=== PATIENT | male | born 1980 | race Hispanic/Latino ===

== ENCOUNTER 2019-05-22 22:34 | Inpatient (IN) | payer OTHER ==
[~2019-05-22] VITALS: Ht 167.6 cm; Wt 104.3 kg
[2019-05-22] MEDS ORDERED: ASPIRIN 325 MG TABLET ONE (22:46)
[2019-05-22] MEDS ORDERED: ONDANSETRON HCL 4 MG/2 ML VIAL ONE (22:46)
[2019-05-22] MEDS ORDERED: NITROGLYCERIN 0.4 MG SL TAB SL ONE (22:51)
[2019-05-22] MEDS ORDERED: MORPHINE SULFATE 4 MG/1ML SYG ONE ×2 (22:52→23:35)
[2019-05-22] MEDS ORDERED: HEPARIN 25000 UNITS/250 ML D5W 250 ML IV ONE (22:52)
[2019-05-22] MEDS ORDERED: HEPARIN SODIUM 5000UNIT/ML 1ML VIAL ONE (22:54)
[2019-05-22 22:58] LABS: BASOPHILS % (AUTO) 0.5 % (0.0-5.0); EOSINOPHILS % (AUTO) 0.9 % (0.0-8.0); LYMPHOCYTES % (AUTO) 23.6 % (21.0-51.0); MEAN CORPUSCULAR HEMOGLOBIN 30.1 pg (27.0-33.0); MEAN CORPUSCULAR VOLUME 88.7 fL (79-99); NEUTROPHILS % (AUTO) 68.4 % (40.0-77.0); PLATELET COUNT (AUTO) 296 K/uL (130-400); RED BLOOD CELL COUNT(AUTO) 5.64 MIL/uL (4.50-6.20); WHITE BLOOD COUNT (AUTO) 21.5 K/uL (4.8-10.8)
[2019-05-22] MEDS ORDERED: LORAZEPAM 2 MG/ML 1 ML VIAL ONE (22:59)
[2019-05-22 23:05] LABS: CREATININE 1.1 mg/dL (0.5-1.5); POTASSIUM 4.1 mmol/L (3.5-5.1)
[2019-05-22 23:06] LABS: INR 0.93 (0.85-1.15); PARTIAL THROMBOPLASTIN TIME 23.8 SEC (26.3-35.5); PROTHROMBIN TIME 10.1 SEC (9.6-11.6)
[2019-05-22 23:09] LABS: ALBUMIN 3.3 g/dL (3.5-5.0); BILIRUBIN,TOTAL 0.2 mg/dL (0.2-1.0); TOTAL PROTEIN, SERUM 6.8 g/dL (6.0-8.3)
[2019-05-22] MEDS ORDERED: LACTULOSE 20 GM/30 ML UDCUP PO PRN (23:15)
[2019-05-22] MEDS ORDERED: MORPHINE SULFATE 2 MG/ML 1ML SYG IV PRN (23:15)
[2019-05-22] MEDS ORDERED: ACETAMINOPHEN 325 MG TAB PO PRN ×2 (23:15)
[2019-05-22] MEDS ORDERED: ONDANSETRON HCL 4 MG/2 ML VIAL IV PRN (23:15)
[2019-05-22] MEDS ORDERED: NITROGLYCERIN 2 MG/VIAL VIAL IV ONE (23:20)
[2019-05-22] MEDS ORDERED: BIVALIRUDIN 250 MG/VIAL IV ONE (23:20)
[2019-05-22] MEDS ORDERED: MIDAZOLAM HCL 1 MG/ML 2ML VIAL ONE (23:21)
[2019-05-22] MEDS ORDERED: LIDOCAINE HCL 2% 20ML ONE (23:21)
[2019-05-22] MEDS ORDERED: IOHEXOL-350 50ML VIAL IV ONE (23:23)
[2019-05-22] MEDS ORDERED: FENTANYL CITRATE PF 50 MCG/1 ML 2ML VIAL ONE (23:23)
[2019-05-22] MEDS ORDERED: IOHEXOL 350 MG/ML 100ML INFUS..BTL IV ONE (23:23)
[2019-05-22] MEDS ORDERED: DiphenhydrAMINE HCL 50 MG/ML VIAL ONE (23:40)
[2019-05-23] VITALS (38 sets, daily range): BP systolic 93–131; BP diastolic 39–80
[2019-05-23] LABS: CHOLESTEROL 204 mg/dL (<200); HDL CHOLESTEROL 36 mg/dL (29-71); LDL DIRECT 139 mg/dL (0-99); TRIGLYCERIDES 106 mg/dL (30-200)
[2019-05-23 00:01] LABS: HEMOGLOBIN A1C 5.5 % (4.0-6.0)
[2019-05-23] MEDS ORDERED: DOPAMINE HCL 400 MG/D5%-WATER 0 ML IV ONE (00:24)
[2019-05-23] MEDS ORDERED: ATROPINE SULFATE 0.1 MG/ML 10 ML SYG IVP ONE (00:24)
[2019-05-23] MEDS ORDERED: ONDANSETRON HCL 4 MG/2 ML VIAL ONE (00:25)
[2019-05-23] MEDS ORDERED: TICAGRELOR 90 MG TABLET ONE (00:34)
[2019-05-23] MEDS ORDERED: PHENYLEPHRINE HCL 10 MG/ML 1ML VIAL IV ONE (00:38)
[2019-05-23] MEDS ORDERED: SODIUM CHLORIDE 0.9% 1000ML 1,000 ML IV SCH (00:56)
[2019-05-23] MEDS ORDERED: PHARMACY COMMUNICATION MISC SCH (01:30)
--- NOTE | 2019-05-23 02:22 | NUR ---
0153 Received patient from quality control lab technician. Sedated but awakens easily. No c/o pain,sob. Oriented to room, call light, plan of care, etc. Sinus bradycardia, rate 59 to low 60's, occ PVC. N/C at 2L increased to 3 L due to saturation levels of 90 to 91. Saturating 94 to 95 on 3 liters. 0203 11 seconds of afib w/rvr, 0204 35 seconds afib w/rvr then converted to sinus, rate 60 to 61, occ pvc's. Approx 6 seconds run of afib w/rvr, BBB. Dr. Roe called and informed of rhythm changes. No new orders. Stated do not need to call elevated troponin level in am.
[2019-05-23] MEDS ORDERED: PHENYLEPHRINE HCL 50 MG/NS 250ML IV PRN ×2 (02:45)
[2019-05-23 04:26] LABS: AMPHET/METH SCREEN,URINE NEGATIVE (NEGATIVE); BARBITURATE SCREEN, URINE NEGATIVE (NEGATIVE); BENZODIAZEPINES SCREEN,URINE POSITIVE (NEGATIVE); CANNABINOID SCREEN,URINE NEGATIVE (NEGATIVE); COCAINE SCREEN,URINE POSITIVE (NEGATIVE); OPIATE SCREEN,URINE POSITIVE (NEGATIVE); PHENCYCLIDINE SCREEN,URINE NEGATIVE (NEGATIVE)
[2019-05-23 05:56] LABS: BASOPHILS % (AUTO) 0.3 % (0.0-5.0); EOSINOPHILS % (AUTO) 0.1 % (0.0-8.0); HEMATOCRIT 47.9 % (42-54); LYMPHOCYTES % (AUTO) 17.9 % (21.0-51.0); MEAN CORPUSCULAR HEMOGLOBIN 30.6 pg (27.0-33.0); MEAN CORPUSCULAR HGB CONC 33.6 g/dL (32.0-36.0); MEAN CORPUSCULAR VOLUME 91.1 fL (79-99); MONOCYTES % (AUTO) 6.6 % (3.0-13.0); NEUTROPHILS % (AUTO) 74.4 % (40.0-77.0); PLATELET COUNT (AUTO) 240 K/uL (130-400); RED BLOOD CELL COUNT(AUTO) 5.26 MIL/uL (4.50-6.20); RED CELL DISTRIBUTION WIDTH 14.4 % (11.0-15.5); WHITE BLOOD COUNT (AUTO) 17.2 K/uL (4.8-10.8)
[2019-05-23 06:12] LABS: CREATININE 0.9 mg/dL (0.5-1.5); POTASSIUM 4.4 mmol/L (3.5-5.1)
--- NOTE | 2019-05-23 07:45 | NUR ---
LISSETT DRIP DECREASED TO 6 MCG/MIN , CURRENT B/P 105/70, SR 71
--- NOTE | 2019-05-23 08:20 | NUR ---
DR HUERTA AT BEDSIDE TO ASSESS PATIENT, MD AWARE ABOUT LATEST TROPONIN 263.60. MD MADE AWARE ABOUT SCHEDULED LOPRESSOR 25 MG PO PO BID AND LISINOPRIL 10 MG PO DAILY, PER MD INSTRUCTIONS ARE TO HOLD THESE MEDS FOR NOW, UNTIL PATIENT OFF THE LISSETT DRIP, CURRENTLY AT 6 MCG/MIN
--- NOTE | 2019-05-23 08:30 | NUR ---
LISSETT DRIP DECREASED TO 5 MCG/MIN, CURRENT B/P 100/64, SR 68
[2019-05-23] MEDS: METOPROLOL TARTRATE 25 MG TAB PO SCH ×2 (08:45→20:42)
[2019-05-23] MEDS: FAMOTIDINE/PF 20 MG/2 ML VIAL IV SCH ×2 (08:45→20:41)
[2019-05-23] MEDS: TICAGRELOR 90 MG TABLET PO SCH ×2 (08:45→20:42)
[2019-05-23] MEDS: ASPIRIN 81MG TAB.CHEW PO SCH (08:45)
[2019-05-23] MEDS ORDERED: LISINOPRIL 10 MG TABLET PO SCH (09:00)
--- NOTE | 2019-05-23 09:28 | NUR ---
DCP: HOME SW spoke to pt's mother Steven Costa [phone]. Mother stated that pt did not come home last night and she thought he was at a friends house. Mother was not aware pt was at [facility]. Mother given contact information for nurse Zeeshan in ICU for update on pt condition. Mother reports that pt is living with her since Feb 06. when He and girlfriend of 17yrs had broken up. Pt has no children. Mother states that pt is independent, was working until last week when he could no longer worker because of his health. Pt reportedly was denied SSD in past. Pt has no DME or in home care services because of no insurance. Mother states pt was here in Feb for heart issues and again in April to ER. Mother states pt is very stubborn and non complaint, very heavy smoker and drug user. Mother states she is decision maker if pt can't make them. Discussed code status and mother states pt is FULL CODE. CM to f/u and assist with dcp as needed Addendum: 05/23/19 at 0936 by JOSE FISHER Amended: Links added.
--- NOTE | 2019-05-23 09:30 | NUR ---
LISSETT DRIP DECREASED TO 3 MCG/MIN, CURRENT B/P 126/63, SR 72
--- NOTE | 2019-05-23 10:45 | NUR ---
LISSETT DRIP DECREASED TO 1 MCG/MIN, CURRENT B/P 113/70, SR 63
--- NOTE | 2019-05-23 11:30 | NUR ---
LISSETT DRIP DISCONTINUED AT THIS TIME, CURRENT B/P 118/67, SR 69
--- NOTE | 2019-05-23 14:15 | NUR ---
TRANSFER FROM ICU RECEIVED PT FROM Mariann BAEZA RN, AMBULATING FROM WHEELCHAIR, GAIT STEADY AND STRONG WITH STAND BY ASSIST, RT GROIN SOFT NONTENDER WITH NO OOZING OR HEMATOMA PRESENT. PT RESTING COMFORTABLY, CALL LIGHT WITHIN REACH.
--- NOTE | 2019-05-23 14:15 | NUR ---
VITAL SIGNS REMAIN STABLE. TRANSFERRED TO ROOM 201 VIA WHEELCHAIR, BEDSIDE REPORT GIVEN TO MILENA MEDRANO RN.
[2019-05-23] MEDS ORDERED: ATORVASTATIN CALCIUM 20 MG TABLET PO SCH (21:00)
[2019-05-24 03:42] VITALS: BP 92/58
[2019-05-24 04:10] LABS: BASOPHILS % (AUTO) 0.4 % (0.0-5.0); EOSINOPHILS % (AUTO) 0.5 % (0.0-8.0); HEMATOCRIT 42.9 % (42-54); LYMPHOCYTES % (AUTO) 29.4 % (21.0-51.0); MEAN CORPUSCULAR HEMOGLOBIN 30.2 pg (27.0-33.0); MEAN CORPUSCULAR HGB CONC 33.3 g/dL (32.0-36.0); MEAN CORPUSCULAR VOLUME 90.5 fL (79-99); MONOCYTES % (AUTO) 6.1 % (3.0-13.0); NEUTROPHILS % (AUTO) 63.2 % (40.0-77.0); PLATELET COUNT (AUTO) 230 K/uL (130-400); RED BLOOD CELL COUNT(AUTO) 4.74 MIL/uL (4.50-6.20); RED CELL DISTRIBUTION WIDTH 14.5 % (11.0-15.5); WHITE BLOOD COUNT (AUTO) 16.7 K/uL (4.8-10.8)
[2019-05-24 04:22] LABS: CREATININE 0.9 mg/dL (0.5-1.5); MAGNESIUM 1.7 mg/dL (1.80-2.40); PHOSPHORUS 2.5 mg/dL (2.5-4.9); POTASSIUM 3.8 mmol/L (3.5-5.1)
[2019-05-24 04:25] LABS: HEMOGLOBIN A1C 5.5 % (4.0-6.0)
[2019-05-24 04:35] LABS: B-TYPE NATRIURETIC PEPTIDE 181 pg/mL (0-100)
[2019-05-24 08:34] VITALS: BP 102/57
[2019-05-24] MEDS: FAMOTIDINE/PF 20 MG/2 ML VIAL IV SCH (09:22)
[2019-05-24] MEDS: METOPROLOL TARTRATE 25 MG TAB PO SCH (09:22)
[2019-05-24] MEDS: ASPIRIN 81MG TAB.CHEW PO SCH (09:22)
[2019-05-24] MEDS ORDERED: CLOPIDOGREL BISULFATE 75 MG TAB PO SCH (09:30)
[2019-05-24 12:22] VITALS: BP 94/57
[2019-05-24 16:30] VITALS: BP 102/59
[2019-05-24] MEDS ORDERED: METO25 PO (17:38)
[2019-05-24] MEDS ORDERED: LISI-617 PO (17:38)
[2019-05-24] MEDS ORDERED: ASPI-1005 PO (17:38)
[2019-05-24] MEDS ORDERED: CLOP75TA14 PO (17:38)
[2019-05-24] MEDS ORDERED: ATOR20TA65 PO (17:38)
[2019-05-25] MEDS ORDERED: LISINOPRIL 10 MG TABLET PO SCH (09:00)
[2019-05-25] MEDS ORDERED: CLOPIDOGREL BISULFATE 75 MG TAB PO SCH (09:00)
== END 2019-05-24 17:55 | disposition home or self-care (01) | DRG 246 ==
LOC: EDH 22:34 → EDHIP 22:35 → 2BH 05-23 01:49 → 2AH 05-23 14:17
PROVIDERS: ADMIT Internal Medicine; ATTEND Internal Medicine
PROC: 027034Z Dilation of Coronary Artery, One Artery with Drug-eluting Intraluminal Device, Percutaneous Approach (ICD-10-PCS; principal; 2019-05-22)
PROC: 4A023N7 Measurement of Cardiac Sampling and Pressure, Left Heart, Percutaneous Approach (ICD-10-PCS; 2019-05-22)
PROC: B2111ZZ Fluoroscopy of Multiple Coronary Arteries using Low Osmolar Contrast (ICD-10-PCS; 2019-05-22)
PROC: B2151ZZ Fluoroscopy of Left Heart using Low Osmolar Contrast (ICD-10-PCS; 2019-05-22)
DX: I21.11 ST elevation (STEMI) myocardial infarction involving right coronary artery (principal); I50.21 Acute systolic (congestive) heart failure; F14.90 Cocaine use, unspecified, uncomplicated; F17.290 Nicotine dependence, other tobacco product, uncomplicated; I73.9 Peripheral vascular disease, unspecified; J45.909 Unspecified asthma, uncomplicated; I11.0 Hypertensive heart disease with heart failure; I25.10 Atherosclerotic heart disease of native coronary artery without angina pectoris; Z91.018 Allergy to other foods; Z71.6 Tobacco abuse counseling; I25.2 Old myocardial infarction; Z80.59 Family history of malignant neoplasm of other urinary tract organ; Z82.5 Family history of asthma and other chronic lower respiratory diseases; Z82.49 Family history of ischemic heart disease and other diseases of the circulatory system
CPT/HCPCS: 36415; 71045; 80048; 80053; 80061; 80305; 82550; 83036; 83735; 83880; 84100; 84484; 85025; 85610; 85730; 93005; 93458; 99156; 99157; 99291; C1725; C1760; C1769; C1887; C1894; C9606; G0378; J0461; J0583; J1200; J1265; J1644; J2060; J2250; J2270; J2370; J2405; J3010; J3490; Q9967

== ENCOUNTER 2019-06-11 20:46 | Inpatient (IN) | payer OTHER ==
[~2019-06-11] VITALS: Ht 167.6 cm; Wt 95.2 kg
[~2019-06-11 20:46] MED LIST: ASPI-1005 PO; ATOR20TA65 PO; CLOP75TA14 PO; LISI-617 PO; METO25 PO
[2019-06-11 21:30] LABS: BASOPHILS % (AUTO) 0.8 % (0.0-5.0); EOSINOPHILS % (AUTO) 2.2 % (0.0-8.0); HEMATOCRIT 46.3 % (42-54); LYMPHOCYTES % (AUTO) 31.5 % (21.0-51.0); MEAN CORPUSCULAR HEMOGLOBIN 29.5 pg (27.0-33.0); MEAN CORPUSCULAR HGB CONC 33.3 g/dL (32.0-36.0); MEAN CORPUSCULAR VOLUME 88.7 fL (79-99); MONOCYTES % (AUTO) 10.5 % (3.0-13.0); NEUTROPHILS % (AUTO) 54.6 % (40.0-77.0); PLATELET COUNT (AUTO) 271 K/uL (130-400); RED BLOOD CELL COUNT(AUTO) 5.22 MIL/uL (4.50-6.20); RED CELL DISTRIBUTION WIDTH 13.9 % (11.0-15.5); WHITE BLOOD COUNT (AUTO) 11.7 K/uL (4.8-10.8)
[2019-06-11 21:39] LABS: POTASSIUM 4.2 mmol/L (3.5-5.1)
[2019-06-11 21:41] LABS: INR 0.9 (0.85-1.15); PROTHROMBIN TIME 9.8 SEC (9.6-11.6)
[2019-06-11 21:43] LABS: ALBUMIN 3.2 g/dL (3.5-5.0); BILIRUBIN,TOTAL 0.1 mg/dL (0.2-1.0); TOTAL PROTEIN, SERUM 6.6 g/dL (6.0-8.3)
[2019-06-11 22:01] LABS: AMPHET/METH SCREEN,URINE NEGATIVE (NEGATIVE); BARBITURATE SCREEN, URINE NEGATIVE (NEGATIVE); BENZODIAZEPINES SCREEN,URINE NEGATIVE (NEGATIVE); CANNABINOID SCREEN,URINE NEGATIVE (NEGATIVE); COCAINE SCREEN,URINE POSITIVE (NEGATIVE); OPIATE SCREEN,URINE NEGATIVE (NEGATIVE); PHENCYCLIDINE SCREEN,URINE NEGATIVE (NEGATIVE)
[2019-06-11] MEDS ORDERED: ASPIRIN 325 MG TABLET ONE (22:46)
[2019-06-11] MEDS ORDERED: ONDANSETRON HCL 4 MG/2 ML VIAL ONE (22:46)
[2019-06-11] MEDS ORDERED: HEPARIN SODIUM 5000UNIT/ML 1ML VIAL ONE (22:47)
[2019-06-11] MEDS ORDERED: MORPHINE SULFATE 4 MG/1ML SYG ONE (22:47)
[2019-06-11] MEDS ORDERED: HEPARIN 25000 UNITS/250 ML D5W 250 ML IV ONE (22:49)
[2019-06-11] MEDS ORDERED: VANCOMYCIN 1GM+NS 250ML 250 ML IV ONE (23:25)
[2019-06-11] MEDS ORDERED: ZOSYN 3.375GM+NS 50ML 50 ML IV ONE (23:25)
[2019-06-11] MEDS ORDERED: LACTULOSE 20 GM/30 ML UDCUP PO PRN (23:30)
[2019-06-11] MEDS ORDERED: ACETAMINOPHEN 325 MG TAB PO PRN ×2 (23:30)
[2019-06-11] MEDS ORDERED: HYDRALAZINE HCL 20 MG/ML VIAL IV PRN (23:30)
[2019-06-11] MEDS ORDERED: ONDANSETRON HCL 4 MG/2 ML VIAL IV PRN (23:30)
[2019-06-11] MEDS ORDERED: NITROGLYCERIN 0.4 MG SL TAB SL PRN (23:30)
[2019-06-12 02:30] VITALS: BP 122/72
--- NOTE | 2019-06-12 02:45 | NUR ---
HEPARIN DRIP Received pt from ER with Heparin drip infusing via pump at 1700 unit/hr.Double checked pump setting with Jonathan Medeiros Rn.
[2019-06-12] MEDS: MORPHINE SULFATE 2 MG/ML 1ML SYG IM PRN ×3 (03:04→22:24)
--- NOTE | 2019-06-12 06:09 | NUR ---
PTT boiler control technician here to draw ptt.
[2019-06-12 06:31] LABS: BASOPHILS % (AUTO) 0.5 % (0.0-5.0); EOSINOPHILS % (AUTO) 2.6 % (0.0-8.0); HEMATOCRIT 44.5 % (42-54); LYMPHOCYTES % (AUTO) 52.6 % (21.0-51.0); MEAN CORPUSCULAR HEMOGLOBIN 29.9 pg (27.0-33.0); MEAN CORPUSCULAR HGB CONC 33.3 g/dL (32.0-36.0); MEAN CORPUSCULAR VOLUME 89.9 fL (79-99); MONOCYTES % (AUTO) 6.5 % (3.0-13.0); NEUTROPHILS % (AUTO) 37.2 % (40.0-77.0); PLATELET COUNT (AUTO) 261 K/uL (130-400); RED BLOOD CELL COUNT(AUTO) 4.95 MIL/uL (4.50-6.20); RED CELL DISTRIBUTION WIDTH 14.2 % (11.0-15.5); WHITE BLOOD COUNT (AUTO) 13.3 K/uL (4.8-10.8)
[2019-06-12 06:48] LABS: CREATININE 0.8 mg/dL (0.5-1.5); POTASSIUM 4.2 mmol/L (3.5-5.1)
[2019-06-12 06:54] LABS: INR 0.93 (0.85-1.15); PARTIAL THROMBOPLASTIN TIME 49.5 SEC (26.3-35.5); PROTHROMBIN TIME 10.1 SEC (9.6-11.6)
--- NOTE | 2019-06-12 07:09 | NUR ---
ptt ptt 49.5,no change in heparin drip.next ptt due at 12 noon.
[2019-06-12 08:00] VITALS: BP 111/69
[2019-06-12 09:34] LABS: APPEARANCE,URINE Clear (CLEAR); BILIRUBIN,URINE Negative (NEGATIVE); COLOR,URINE Yellow (YELLOW); GLUCOSE, URINE (UA) Negative (NEGATIVE); KETONES,URINE Negative (NEGATIVE); LEUKOCYTE ESTERASE ,URINE Negative (NEGATIVE); NITRATE,URINE Negative (NEGATIVE); OCCULT BLOOD,URINE Negative (NEGATIVE); PH,URINE 5.5 (5.0-8.0); PROTEIN,URINE Negative (NEGATIVE)
[2019-06-12] MEDS: METOPROLOL TARTRATE 25 MG TAB PO SCH ×2 (09:49→20:23)
[2019-06-12] MEDS: ASPIRIN 81MG TAB.CHEW PO SCH (09:50)
[2019-06-12] MEDS: FAMOTIDINE 20MG TAB 20 MG TAB PO SCH ×2 (09:50→20:23)
[2019-06-12 12:00] VITALS: BP 106/63
[2019-06-12] MEDS ORDERED: HEPARIN 25000 UNITS/250 ML D5W 250 ML IV ONE (12:37)
--- NOTE | 2019-06-12 14:00 | NUR ---
RD NOTIFICATION Pt admitted with Chest pain, pending Warper Fixer evaluation. Pt asleep at time of visit. RN reports Pt wakes up with chest pain, fair appetite (75-100%), no GI distress. Obesity Class II (35.3). Recommend continue Heart Healthy Diet Order RD to follow up with Nutrition Education Please notify as additional nutrition concerns arise. Thank you. Addendum: 06/12/19 at [address] Amended: Links added.
--- NOTE | 2019-06-12 14:52 | NUR ---
DCP CM met with pt discussed dc plans. Pt is independent prior to admission, lives at home w/mother. Denies any equipments/services. Feels safe to go back home, still drives, mother able to assist with transportation and needs. Pt has a selfpay, [facility] assisting, currently seeing Dr Pawel Bui for f/u. Given [employer] packet. DC plan to home once stable. CM to cont to follow up. Addendum: 06/12/19 at 1453 by LENNY MEDRANO LVN CM Amended: Links added.
[2019-06-12] MEDS ORDERED: DiphenhydrAMINE HCL 50 MG/ML VIAL IVP PRN (15:15)
[2019-06-12 16:00] VITALS: BP 120/66
[2019-06-12 18:29] LABS: INR 0.97 (0.85-1.15); PARTIAL THROMBOPLASTIN TIME 56.9 SEC (26.3-35.5); PROTHROMBIN TIME 10.5 SEC (9.6-11.6)
[2019-06-12 19:55] VITALS: BP_SYST 122; BP_SYST 98; BP_DIAS 49; BP_DIAS 71
[2019-06-12] MEDS: ATORVASTATIN CALCIUM 20 MG TABLET PO SCH (20:23)
[2019-06-12 23:32] VITALS: BP 108/50
[2019-06-13 00:18] LABS: INR 0.94 (0.85-1.15); PARTIAL THROMBOPLASTIN TIME 48.1 SEC (26.3-35.5); PROTHROMBIN TIME 10.2 SEC (9.6-11.6)
[2019-06-13] MEDS: HEPARIN 25000 UNITS/250 ML D5W 250 ML IV PRN ×2 (01:01→15:32)
[2019-06-13 03:35] VITALS: BP 115/61
[2019-06-13 04:03] LABS: HEMATOCRIT 48.1 % (42-54); MEAN CORPUSCULAR HEMOGLOBIN 30.2 pg (27.0-33.0); MEAN CORPUSCULAR HGB CONC 33.3 g/dL (32.0-36.0); MEAN CORPUSCULAR VOLUME 90.8 fL (79-99); RED BLOOD CELL COUNT(AUTO) 5.3 MIL/uL (4.50-6.20); RED CELL DISTRIBUTION WIDTH 14.1 % (11.0-15.5); WHITE BLOOD COUNT (AUTO) 13.4 K/uL (4.8-10.8)
[2019-06-13 04:27] LABS: INR 0.94 (0.85-1.15); PARTIAL THROMBOPLASTIN TIME 54.6 SEC (26.3-35.5); PROTHROMBIN TIME 10.2 SEC (9.6-11.6)
[2019-06-13 04:28] LABS: POTASSIUM 4.4 mmol/L (3.5-5.1)
[2019-06-13 07:30] VITALS: BP 100/63
[2019-06-13] MEDS: METOPROLOL TARTRATE 25 MG TAB PO SCH ×2 (08:47→20:36)
[2019-06-13] MEDS: FAMOTIDINE 20MG TAB 20 MG TAB PO SCH ×2 (08:47→20:36)
[2019-06-13] MEDS: ASPIRIN 81MG TAB.CHEW PO SCH (08:47)
[2019-06-13 11:00] VITALS: BP 97/36
--- NOTE | 2019-06-13 11:27 | NUR ---
RD UPDATE Received phone call from Pt's mother to update dietary preferences. Preferences updated. Diet order discrepancy noted, NPO vs Heart Healthy diet order. Currently two orders active. Attempt to notify RN. will call back.
[2019-06-13] MEDS: MORPHINE SULFATE 2 MG/ML 1ML SYG IV PRN (13:12)
--- NOTE | 2019-06-13 14:04 | NUR ---
NUTRITION EDUCATION MARCELO provided Heart Healthy Nutrition education. MARCELO provided reference materials and handouts. Pt with no questions at this time but verbalized understanding to nutrition education. MARCELO encouraged Pt to notify as questions or concerns arise. Addendum: 06/13/19 at [address] Amended: Links added.
--- NOTE | 2019-06-13 15:09 | NUR ---
RD UPDATE PT REPORTS HAS [employer]AS PEPPER ALLERGY, UPON VISIT EARLIER TODAY. NPO FOR PROCEDURE AT THIS TIME.
[2019-06-13] MEDS: SODIUM CHLORIDE 0.9% 1000ML 1,000 ML IV SCH (15:22)
[2019-06-13 16:00] VITALS: BP 94/41
[2019-06-13 20:00] VITALS: BP 104/52
[2019-06-13] MEDS: ATORVASTATIN CALCIUM 20 MG TABLET PO SCH (20:36)
[2019-06-14] VITALS (13 sets, daily range): BP systolic 93–120; BP diastolic 53–79
[2019-06-14] MEDS: MORPHINE SULFATE 2 MG/ML 1ML SYG IV PRN (00:43)
[2019-06-14] MEDS: SODIUM CHLORIDE 0.9% 1000ML 1,000 ML IV SCH ×2 (01:10→10:58)
[2019-06-14 04:19] LABS: CARBON DIOXIDE 28 mmol/L (21-32); CHLORIDE 102 mmol/L (101-111); CREATININE 0.9 mg/dL (0.5-1.5); GLOMERULAR FILTR. RATE CALC 101 mL/min (>60); GLUCOSE,RANDOM 86 mg/dL (70-105); PHOSPHORUS 4.9 mg/dL (2.5-4.9); POTASSIUM 3.9 mmol/L (3.5-5.1); SODIUM SERUM 138 mmol/L (136-145); UREA NITROGEN, BLOOD 11 mg/dL (7-18)
[2019-06-14 04:22] LABS: BASOPHILS % (AUTO) 0.4 % (0.0-5.0); HEMATOCRIT 47.7 % (42-54); LYMPHOCYTES % (AUTO) 42.3 % (21.0-51.0); MEAN CORPUSCULAR HEMOGLOBIN 29.3 pg (27.0-33.0); MEAN CORPUSCULAR HGB CONC 32.9 g/dL (32.0-36.0); MEAN CORPUSCULAR VOLUME 89.2 fL (79-99); MONOCYTES % (AUTO) 7.3 % (3.0-13.0); NEUTROPHILS % (AUTO) 47.5 % (40.0-77.0); PLATELET COUNT (AUTO) 273 K/uL (130-400); RED BLOOD CELL COUNT(AUTO) 5.35 MIL/uL (4.50-6.20); RED CELL DISTRIBUTION WIDTH 13.8 % (11.0-15.5); WHITE BLOOD COUNT (AUTO) 11.2 K/uL (4.8-10.8)
[2019-06-14 04:51] LABS: B-TYPE NATRIURETIC PEPTIDE 117 pg/mL (0-100)
[2019-06-14 05:23] LABS: ERYTHROCYTE SEDIMENTATION RATE 1 MM/HR (0-15)
[2019-06-14] MEDS ORDERED: HEPARIN SODIUM 1000UNIT/ML 10ML VIAL ONE (07:39)
[2019-06-14] MEDS ORDERED: IODIXANOL 320 MG/ML 100 ML VIAL ONE (07:39)
[2019-06-14] MEDS ORDERED: NITROGLYCERIN 2 MG/VIAL VIAL IV ONE (07:39)
[2019-06-14] MEDS ORDERED: MIDAZOLAM HCL 1 MG/ML 2ML VIAL ONE (07:40)
[2019-06-14] MEDS ORDERED: FENTANYL CITRATE PF 50 MCG/1 ML 2ML VIAL ONE (07:40)
[2019-06-14] MEDS ORDERED: LIDOCAINE HCL 2% 20ML ONE (07:40)
[2019-06-14] MEDS: FAMOTIDINE 20MG TAB 20 MG TAB PO SCH (09:00)
[2019-06-14] MEDS: METOPROLOL TARTRATE 25 MG TAB PO SCH (09:00)
[2019-06-14] MEDS: ASPIRIN 81MG TAB.CHEW PO SCH (09:00)
[2019-06-14] MEDS ORDERED: TICAGRELOR 90 MG TABLET ONE (09:41)
[2019-06-14] MEDS ORDERED: ASPIRIN 325MG EC TAB 325 MG TABLET.DR PO ONE (09:41)
[2019-06-14] MEDS ORDERED: SODIUM CHLORIDE 0.9% 1000ML 1,000 ML IV SCH (09:51)
--- NOTE | 2019-06-14 10:20 | NUR ---
RETURNED TO ROOM VIA BED ACCOMPANIED BY Didi PITTS, RN AND Neeru STONE, RN. PT. AAOX3. RESP.'S EVEN AND UNLABORED. DENIES ANY C/O SOB, DENIES ANY CURRENT PAIN. REMINDED PT. OF STRICT BR PER MD ORDERS DUE TO PERIPHERAL ANGIOGRAM AND BILATERAL FEMORAL ACCESS SITES, VERBALIZED UNDERSTANDING. BILATERAL GROINS SOFT, NO ECCHYMOSIS OR HEMATOMA NOTED, DRSG'S D/I. PP'S (+) BILATERALLY; DENIES ANY C/O NUMBNESS OR TINGLING. BED LOW, SIDE RAILS UP. CALL LIGHT WITHIN REACH, VERBALIZED ABILITY TO USE.
--- NOTE | 2019-06-14 14:00 | NUR ---
BR COMPLETED. BILATERAL GROINS, SOFT, NO ECCHYMOSIS OR HEMATOMA NOTED. FEET WITH (+) PP'S. ASSISTED UP IN BED. CALL LIGHT WITHIN REACH, VERBALIZED ABILITY TO USE.
--- NOTE | 2019-06-14 14:30 | NUR ---
PT. AMBULATING IN HALLWAY WITH STEADY GAIT. DENIES ANY C/O.
--- NOTE | 2019-06-14 15:45 | NUR ---
AMBULATING IN HALLWAY WITH STEADY GAIT. W/O C/O.
--- NOTE | 2019-06-14 19:05 | NUR ---
PT. REQUESTED TO LEAVE AMA AND PROCEEDED TO DO SO. EXPLAINED TO PT. RISK FOR BLEEDING, MYOCARDIAL INFARCT, STROKE OR POSSIBLE OCCLUSION TO STENTS THUS CAUSING CIRCULATORY COMPLICATION THAT COULD LEAD TO AMPUTATION, VERBALIZED UNDERSTANDING BUT DOES NOT WISH TO STAY. INFORMED PT. HE WOULD MORE THAN LIKELY BE ABLE TO DISCHARGED IN THE MORNING DR. HUERTA HAD INFORMED HIM BUT SAYS HE DOES NOT WISH TO STAY. HL'S X2 REMOVED INTACT.
--- NOTE | 2019-06-14 19:33 | NUR ---
RECEIVED CALL FROM Meera VIDAL NP. INFORMED PT. LEFT AMA AND DID NOT WISH TO STAY OVERNIGHT, VERBALIZED UNDERSTANDING.
[2019-06-14] MEDS ORDERED: ATORVASTATIN CALCIUM 40 MG TABLET PO SCH (21:00)
[2019-06-14] MEDS ORDERED: TICAGRELOR 90 MG TABLET PO SCH (22:00)
[2019-06-15] MEDS ORDERED: CLOPIDOGREL BISULFATE 75 MG TAB PO SCH (09:00)
== END 2019-06-14 19:10 | disposition left against medical advice (07) | DRG 254 ==
LOC: EDH 20:46 → EDHIP 20:47 → 4BH 06-12 00:38
PROVIDERS: ADMIT Internal Medicine; ATTEND Internal Medicine
PROC: 047D3DZ Dilation of Left Common Iliac Artery with Intraluminal Device, Percutaneous Approach (ICD-10-PCS; principal; 2019-06-14)
PROC: 047C3ZZ Dilation of Right Common Iliac Artery, Percutaneous Approach (ICD-10-PCS; 2019-06-14)
PROC: B41DYZZ Fluoroscopy of Aorta and Bilateral Lower Extremity Arteries using Other Contrast (ICD-10-PCS; 2019-06-14)
DX: I70.202 Unspecified atherosclerosis of native arteries of extremities, left leg (principal); I25.10 Atherosclerotic heart disease of native coronary artery without angina pectoris; I10 Essential (primary) hypertension; F12.90 Cannabis use, unspecified, uncomplicated; F14.10 Cocaine abuse, uncomplicated; I25.2 Old myocardial infarction; F17.290 Nicotine dependence, other tobacco product, uncomplicated; J45.909 Unspecified asthma, uncomplicated; Z79.02 Long term (current) use of antithrombotics/antiplatelets; Z79.899 Other long term (current) drug therapy; Z95.5 Presence of coronary angioplasty implant and graft; Z53.29 Procedure and treatment not carried out because of patient's decision for other reasons; Z82.49 Family history of ischemic heart disease and other diseases of the circulatory system
CPT/HCPCS: 36415; 37220; 37221; 71045; 73630; 75716; 80048; 80053; 80305; 81003; 82550; 83735; 83880; 84100; 84145; 84484; 85025; 85027; 85347; 85610; 85651; 85730; 86140; 87040; 93005; 93926; 99156; 99157; C1760; C1769; C1893; C1894; G0378; J1200; J1644; J2250; J2270; J2405; J2543; J3010; J3370; J3490; J7030; Q9967

== ENCOUNTER 2019-09-01 17:04 | Inpatient (IN) | payer OTHER ==
[2019-09-01 17:42] LABS: BASOPHILS % (AUTO) 0.5 % (0.0-5.0); EOSINOPHILS % (AUTO) 1.9 % (0.0-8.0); HEMATOCRIT 48.7 % (42-54); LYMPHOCYTES % (AUTO) 27.3 % (21.0-51.0); MEAN CORPUSCULAR HEMOGLOBIN 30.8 pg (27.0-33.0); MEAN CORPUSCULAR HGB CONC 34.5 g/dL (32.0-36.0); MEAN CORPUSCULAR VOLUME 89.2 fL (79-99); MONOCYTES % (AUTO) 6.8 % (3.0-13.0); PLATELET COUNT (AUTO) 219 K/uL (130-400); RED BLOOD CELL COUNT(AUTO) 5.46 MIL/uL (4.50-6.20); RED CELL DISTRIBUTION WIDTH 14.3 % (11.0-15.5); WHITE BLOOD COUNT (AUTO) 14.6 K/uL (4.8-10.8)
[2019-09-01 18:05] LABS: INR 0.92 (0.85-1.15); PARTIAL THROMBOPLASTIN TIME 24.9 SEC (26.3-35.5)
[2019-09-01 18:10] LABS: CREATININE 1.2 mg/dL (0.5-1.5); POTASSIUM 3.7 mmol/L (3.5-5.1)
[2019-09-01 18:15] LABS: ALBUMIN 3.2 g/dL (3.5-5.0); BILIRUBIN,TOTAL 0.2 mg/dL (0.2-1.0); TOTAL PROTEIN, SERUM 6.3 g/dL (6.0-8.3)
[2019-09-01] MEDS ORDERED: ASPIRIN 325 MG TABLET ONE (18:33)
[2019-09-01] MEDS ORDERED: NITROGLYCERIN 1GM/1 INCH PACKET TD ONE (18:33)
[2019-09-01 20:12] LABS: APPEARANCE,URINE Clear (CLEAR); BILIRUBIN,URINE Negative (NEGATIVE); COLOR,URINE Yellow (YELLOW); GLUCOSE, URINE (UA) Negative (NEGATIVE); KETONES,URINE Trace mg/dL (NEGATIVE); LEUKOCYTE ESTERASE ,URINE Negative (NEGATIVE); NITRATE,URINE Negative (NEGATIVE); OCCULT BLOOD,URINE Negative (NEGATIVE); PH,URINE 5.5 (5.0-8.0); PROTEIN,URINE Trace mg/dL (NEGATIVE)
[2019-09-01 20:20] LABS: AMPHET/METH SCREEN,URINE POSITIVE (NEGATIVE); BARBITURATE SCREEN, URINE NEGATIVE (NEGATIVE); BENZODIAZEPINES SCREEN,URINE NEGATIVE (NEGATIVE); CANNABINOID SCREEN,URINE NEGATIVE (NEGATIVE); COCAINE SCREEN,URINE POSITIVE (NEGATIVE); OPIATE SCREEN,URINE NEGATIVE (NEGATIVE); PHENCYCLIDINE SCREEN,URINE NEGATIVE (NEGATIVE)
[2019-09-01 20:22] LABS: BACTERIA,URINE Rare /HPF (None Seen); MUCUS,URINE Few LPF (None Seen); RBC,URINE 0-1 /HPF (0-1); SQUAMOUS EPITHELIAL CELL,UR Rare /HPF (0-2); WBC,URINE 0-1 /HPF (0-1)
[2019-09-01] MEDS ORDERED: KETOROLAC TROMETHAMINE 30MG/ML ONE (20:40)
[2019-09-01] MEDS ORDERED: ASPIRIN 81MG TAB.CHEW PO SCH (21:00)
[2019-09-01] MEDS ORDERED: METOPROLOL TARTRATE 25 MG TAB PO SCH (21:00)
[2019-09-01] MEDS ORDERED: ATORVASTATIN CALCIUM 20 MG TABLET PO SCH (21:00)
[2019-09-01] MEDS ORDERED: ATORVASTATIN CALCIUM 40 MG TABLET ONE (21:13)
[2019-09-01] MEDS ORDERED: ASPIRIN 81MG TAB.CHEW ONE (21:13)
[2019-09-01] MEDS ORDERED: ENOXAPARIN SODIUM 40 MG/0.4 ML SYRINGE SQ ONE (21:13)
[2019-09-01] MEDS ORDERED: METOPROLOL TARTRATE 25 MG TAB ONE (21:13)
[2019-09-02] MEDS ORDERED: ENOXAPARIN SODIUM 40 MG/0.4 ML SYRINGE SQ SCH (09:00)
[2019-09-02] MEDS ORDERED: ASPIRIN 81MG TAB.CHEW PO SCH (09:00)
== END 2019-09-01 23:53 | disposition left against medical advice (07) | DRG 282 ==
LOC: EDH 17:04 → EDHIP 17:05
PROVIDERS: ADMIT Internal Medicine Infectious Disease; ATTEND Internal Medicine Infectious Disease
DX: I21.4 Non-ST elevation (NSTEMI) myocardial infarction (principal); M79.662 Pain in left lower leg; I73.9 Peripheral vascular disease, unspecified; Z91.018 Allergy to other foods
CPT/HCPCS: 36415; 71045; 80053; 80305; 81001; 82550; 84484; 85025; 85610; 85730; 93005; 93925; G0378; J1650; J1885

== ENCOUNTER 2019-09-03 16:23 | Inpatient (IN) | payer OTHER ==
[~2019-09-03] VITALS: Ht 165.1 cm; Wt 95.7 kg
[2019-09-03 17:00] LABS: BASOPHILS % (AUTO) 0.6 % (0.0-5.0); EOSINOPHILS % (AUTO) 2.2 % (0.0-8.0); HEMATOCRIT 47.4 % (42-54); LYMPHOCYTES % (AUTO) 27.8 % (21.0-51.0); MEAN CORPUSCULAR HEMOGLOBIN 30.5 pg (27.0-33.0); MEAN CORPUSCULAR HGB CONC 33.5 g/dL (32.0-36.0); MONOCYTES % (AUTO) 7.5 % (3.0-13.0); NEUTROPHILS % (AUTO) 61.3 % (40.0-77.0); PLATELET COUNT (AUTO) 227 K/uL (130-400); RED BLOOD CELL COUNT(AUTO) 5.21 MIL/uL (4.50-6.20); RED CELL DISTRIBUTION WIDTH 14.3 % (11.0-15.5); WHITE BLOOD COUNT (AUTO) 12.5 K/uL (4.8-10.8)
[2019-09-03 17:12] LABS: CREATININE 1.1 mg/dL (0.5-1.5); POTASSIUM 4.1 mmol/L (3.5-5.1)
[2019-09-03 17:14] LABS: INR 0.9 (0.85-1.15); PARTIAL THROMBOPLASTIN TIME 25.3 SEC (26.3-35.5); PROTHROMBIN TIME 9.8 SEC (9.6-11.6)
[2019-09-03 17:17] LABS: ALBUMIN 3.1 g/dL (3.5-5.0); BILIRUBIN,TOTAL 0.3 mg/dL (0.2-1.0); TOTAL PROTEIN, SERUM 6.5 g/dL (6.0-8.3)
[2019-09-03] MEDS ORDERED: ASPIRIN 325 MG TABLET ONE (17:47)
[2019-09-03] MEDS ORDERED: HEPARIN 25000 UNITS/250 ML D5W 250 ML IV ONE (17:51)
[2019-09-03] MEDS ORDERED: HEPARIN SODIUM 5000UNIT/ML 1ML VIAL ONE ×2 (18:09→18:12)
[2019-09-03] MEDS ORDERED: NITROGLYCERIN 1GM/1 INCH PACKET TD ONE (20:08)
[2019-09-03] MEDS: NITROGLYCERIN 1GM/1 INCH PACKET TD SCH (21:00)
[2019-09-03] MEDS: FAMOTIDINE/PF 20 MG/2 ML VIAL IV SCH (21:00)
[2019-09-03] MEDS ORDERED: ACETAMINOPHEN 325 MG TAB PO PRN ×2 (21:00)
[2019-09-03] MEDS ORDERED: ONDANSETRON HCL 4 MG/2 ML VIAL IV PRN (21:00)
[2019-09-03 23:30] VITALS: BP 97/55
[2019-09-04] MEDS: CEFTRIAXONE SODIUM 1 GM IVP SCH ×3 (00:46→20:19)
[2019-09-04] MEDS: KETOROLAC TROMETHAMINE 15MG/ML IV PRN ×2 (00:46→20:19)
[2019-09-04 04:00] VITALS: BP_SYST 103; BP_SYST 98; BP_DIAS 57; BP_DIAS 60
[2019-09-04] MEDS: NITROGLYCERIN 1GM/1 INCH PACKET TD SCH ×3 (04:24→20:20)
[2019-09-04 08:17] LABS: BASOPHILS % (AUTO) 0.5 % (0.0-5.0); EOSINOPHILS % (AUTO) 2.5 % (0.0-8.0); HEMATOCRIT 46.4 % (42-54); LYMPHOCYTES % (AUTO) 39.5 % (21.0-51.0); MEAN CORPUSCULAR HEMOGLOBIN 30.4 pg (27.0-33.0); MEAN CORPUSCULAR HGB CONC 33.2 g/dL (32.0-36.0); MEAN CORPUSCULAR VOLUME 91.5 fL (79-99); MONOCYTES % (AUTO) 6.7 % (3.0-13.0); NEUTROPHILS % (AUTO) 49.9 % (40.0-77.0); PLATELET COUNT (AUTO) 228 K/uL (130-400); RED BLOOD CELL COUNT(AUTO) 5.07 MIL/uL (4.50-6.20); RED CELL DISTRIBUTION WIDTH 14.4 % (11.0-15.5)
[2019-09-04 08:32] LABS: HEMOGLOBIN A1C 5.6 % (4.0-6.0)
[2019-09-04 08:33] LABS: BILIRUBIN,TOTAL 0.5 mg/dL (0.2-1.0); CREATININE 0.9 mg/dL (0.5-1.5); POTASSIUM 4.3 mmol/L (3.5-5.1); TOTAL PROTEIN, SERUM 6.4 g/dL (6.0-8.3)
--- NOTE | 2019-09-04 09:18 | NUR ---
DR ANGELA NOTIFIED OF CONSULT AND ROOM NUMBER-STATES HE WILL COME TO SEE PT
--- NOTE | 2019-09-04 10:59 | NUR ---
DCP CM unable to do face assessment w/pt at the [facility], called mother on facesheet, spoke to Fortunatonita Igor discussed dc plans. Per mother pt is mostly independent, but lately semi-independent w/ambulation prior to admission, lives at home w/parents. Denies any equipments/services. Feels safe to go back home, mother able to assist with transportation and needs as necessary. Pt is currently selfpay, [facility] assisting, per mother sees Dr Pawel Bui for MD f/u. Mother verbalized pt had [employer] until recently, it was suspended due to unable to make payment. Mother verbalized she will send payment this Monday hoping to reactivate insurance. DC plan to home once stable. CM to cont to follow up. Informed registration regarding pt suspended insurance w/[facility]. Addendum: 09/04/19 at 1104 by LENNY MEDRANO LVN Amended: Links added.
--- NOTE | 2019-09-04 11:01 | NUR ---
CHART CHECK COMPLETED. Pt IS A 39 Y.O. MALE ADMITTED SECONDARY TO NSTEMI, LEFT 5TH DIGIT ISCHEMIA AND COCAINE ABUSE. Pt HAS A PAST MEDICAL HISTORY SIGNIFICANT FOR ASTHMA, COCAINE ABUSE, IN, HYPERTENSION, HYPERCHOLESTEROLEMIA, NASAL POLYP REMOVED, STENTED ARTERY, TONSILLECTOMY. Pt CURRENTLY ON CLEAR LIQUID DIET. PLEASE REQUEST FORMAL SKILLED SPEECH/SWALLOW EVALUATION IF Pt PRESENTS WITH +S/S OF ASPIRATION OF COUGH RESPONSE, THROAT CLEAR, WET VOCAL QUALITY DURING P.O. Addendum: 09/04/19 at 1107 by ASHLEY CROWLEY, SPT ST Amended: Links added.
[2019-09-04] MEDS ORDERED: HEPARIN SODIUM 5000UNIT/ML 1ML VIAL SQ PRN (11:15)
[2019-09-04] MEDS ORDERED: HEPARIN 25000 UNITS/250 ML D5W 250 ML IV SCH (11:15)
[2019-09-04 11:38] VITALS: BP 124/77
[2019-09-04] MEDS: FAMOTIDINE/PF 20 MG/2 ML VIAL IV SCH ×2 (11:51→20:19)
[2019-09-04] MEDS: ASPIRIN 81MG TAB.CHEW PO SCH (11:51)
[2019-09-04 16:00] VITALS: BP 105/65
[2019-09-04] MEDS ORDERED: HEPARIN SODIUM 5000UNIT/ML 1ML VIAL IV SCH (16:15)
[2019-09-04 19:48] VITALS: BP 105/59
[2019-09-04 23:53] VITALS: BP 100/60
[2019-09-05] VITALS (10 sets, daily range): BP systolic 97–126; BP diastolic 57–83
[2019-09-05] MEDS: NITROGLYCERIN 1GM/1 INCH PACKET TD SCH ×2 (04:49→12:32)
--- NOTE | 2019-09-05 07:50 | NUR ---
Assessment Referral for cocaine abuse. Pt. is awake, alert and oriented, reports that he is single, currently unemployed and resides at home with his Mother. Pt. is independent with ADL's and his mother is financially supportive. All utilities reportedly connected in the home, pt. will return home at discharge with mother providing transportation. Pt. admits to having used Marijuana prior to admission, stating that he just wanted to get relief from pain on his leg/foot. According to pt., he obtained the marijuana from a friend and it was "laced" with the cocaine. Pt. admits that he should seek counseling and a program for substance use disorder. LARRY spoke with pt. about [facility] and the program/services offered, pt. voiced an understanding, saying he would consider it. Pt. denied depressive symptoms, suicidal thoughts/ideations, thoughts of harming self or others. LARRY provided pt. with brochure on [facility] Substance Use Disorder Program, [facility] Counseling Program, Community resources and 211. Pt. voiced no other needs or concerns. Addendum: 09/05/19 at 1110 by ROHIT PITTS Amended: Links added.
--- NOTE | 2019-09-05 08:06 | NUR ---
DR HIDALGO-PODIATRY NOTIFIED OF CONSULT
[2019-09-05] MEDS ORDERED: CLOPIDOGREL BISULFATE 75 MG TAB PO SCH (09:00)
[2019-09-05] MEDS ORDERED: HEPARIN SODIUM 5000UNIT/ML 1ML VIAL ONE (09:03)
[2019-09-05] MEDS: FAMOTIDINE/PF 20 MG/2 ML VIAL IV SCH (09:18)
[2019-09-05] MEDS: ASPIRIN 81MG TAB.CHEW PO SCH (09:19)
--- NOTE | 2019-09-05 10:00 | NUR ---
Dr. Pulliam notified of consult Dr. Pulliam notified of consult via office.
[2019-09-05] MEDS: CEFTRIAXONE SODIUM 1 GM IVP SCH (12:32)
--- NOTE | 2019-09-05 15:49 | NUR ---
AMA 1530 pt stated he wanted to "check himself out". Pt stated he was "sick of waiting" and "[wants] to go home and take [his] plavix". Healthcare Specialist spoke with pt and THERESA Marshall spoke with pt regarding the potential benefits of staying and risks of leaving before completing treatment. Pt not redirectable at this time. IV dc'd catheter intact.
== END 2019-09-05 15:49 | disposition left against medical advice (07) | DRG 282 ==
LOC: EDH 16:23 → EDHIP 16:24 → DAHIP 23:25
PROVIDERS: ADMIT Internal Medicine; ATTEND Internal Medicine
DX: I21.4 Non-ST elevation (NSTEMI) myocardial infarction (principal); E78.5 Hyperlipidemia, unspecified; F17.210 Nicotine dependence, cigarettes, uncomplicated; I10 Essential (primary) hypertension; I73.9 Peripheral vascular disease, unspecified; J45.909 Unspecified asthma, uncomplicated; Z91.19 Patient's noncompliance with other medical treatment and regimen; F14.10 Cocaine abuse, uncomplicated
CPT/HCPCS: 36415; 71045; 80053; 80061; 82550; 83036; 83605; 84484; 85025; 85610; 85730; 93005; 93925; G0378; J0696; J1644; J1885; J3490

== ENCOUNTER 2019-09-15 14:07 | Inpatient (IN) | payer OTHER ==
[~2019-09-15] VITALS: Ht 167.6 cm; Wt 95.1 kg
[2019-09-15 15:01] LABS: BASOPHILS % (AUTO) 0.5 % (0.0-5.0); EOSINOPHILS % (AUTO) 2.4 % (0.0-8.0); HEMATOCRIT 41.4 % (42-54); LYMPHOCYTES % (AUTO) 29.1 % (21.0-51.0); MEAN CORPUSCULAR HEMOGLOBIN 30.3 pg (27.0-33.0); MEAN CORPUSCULAR HGB CONC 34.5 g/dL (32.0-36.0); MEAN CORPUSCULAR VOLUME 87.7 fL (79-99); MONOCYTES % (AUTO) 7.5 % (3.0-13.0); NEUTROPHILS % (AUTO) 60.2 % (40.0-77.0); PLATELET COUNT (AUTO) 298 K/uL (130-400); RED BLOOD CELL COUNT(AUTO) 4.72 MIL/uL (4.50-6.20); RED CELL DISTRIBUTION WIDTH 13.6 % (11.0-15.5); WHITE BLOOD COUNT (AUTO) 10.2 K/uL (4.8-10.8)
[2019-09-15 15:23] LABS: INR 0.99 (0.85-1.15); PARTIAL THROMBOPLASTIN TIME 30.7 SEC (26.3-35.5); PROTHROMBIN TIME 10.7 SEC (9.6-11.6)
[2019-09-15] MEDS ORDERED: ASPIRIN 325 MG TABLET ONE (15:24)
[2019-09-15 15:26] LABS: ALBUMIN 2.9 g/dL (3.5-5.0); BILIRUBIN,TOTAL 0.6 mg/dL (0.2-1.0); POTASSIUM 3.5 mmol/L (3.5-5.1); TOTAL PROTEIN, SERUM 6.9 g/dL (6.0-8.3)
[2019-09-15] MEDS ORDERED: HEPARIN 25000 UNITS/250 ML D5W 250 ML IV ONE (17:12)
[2019-09-15] MEDS ORDERED: HEPARIN SODIUM 5000UNIT/ML 1ML VIAL ONE (17:12)
[2019-09-15 18:40] LABS: AMPHET/METH SCREEN,URINE NEGATIVE (NEGATIVE); BARBITURATE SCREEN, URINE NEGATIVE (NEGATIVE); BENZODIAZEPINES SCREEN,URINE NEGATIVE (NEGATIVE); CANNABINOID SCREEN,URINE NEGATIVE (NEGATIVE); COCAINE SCREEN,URINE POSITIVE (NEGATIVE); OPIATE SCREEN,URINE NEGATIVE (NEGATIVE); PHENCYCLIDINE SCREEN,URINE NEGATIVE (NEGATIVE)
[2019-09-15] MEDS ORDERED: ONDANSETRON HCL 4 MG/2 ML VIAL IV PRN (18:45)
[2019-09-15] MEDS ORDERED: ACETAMINOPHEN 325 MG TAB PO PRN (18:45)
[2019-09-15] MEDS ORDERED: HEPARIN 25000 UNITS/250 ML D5W 250 ML IV SCH (18:45)
[2019-09-15] MEDS ORDERED: ATORVASTATIN CALCIUM 20 MG TABLET ONE (20:35)
[2019-09-15] MEDS ORDERED: METOPROLOL TARTRATE 25 MG TAB ONE (20:36)
[2019-09-15] MEDS: METOPROLOL TARTRATE 25 MG TAB PO SCH (21:00)
[2019-09-16 00:22] LABS: INR 0.99 (0.85-1.15); PARTIAL THROMBOPLASTIN TIME 36.4 SEC (26.3-35.5); PROTHROMBIN TIME 10.7 SEC (9.6-11.6)
[2019-09-16] MEDS ORDERED: KETOROLAC TROMETHAMINE 30MG/ML ONE (01:31)
[2019-09-16 04:12] VITALS: BP 132/88
[2019-09-16 05:44] LABS: HEMATOCRIT 41.8 % (42-54); MEAN CORPUSCULAR HEMOGLOBIN 30.7 pg (27.0-33.0); MEAN CORPUSCULAR HGB CONC 34.7 g/dL (32.0-36.0); MEAN CORPUSCULAR VOLUME 88.4 fL (79-99); RED BLOOD CELL COUNT(AUTO) 4.73 MIL/uL (4.50-6.20); RED CELL DISTRIBUTION WIDTH 13.5 % (11.0-15.5); WHITE BLOOD COUNT (AUTO) 11.2 K/uL (4.8-10.8)
[2019-09-16 05:53] LABS: CREATININE 0.9 mg/dL (0.5-1.5); POTASSIUM 3.6 mmol/L (3.5-5.1)
[2019-09-16 06:18] LABS: INR 0.99 (0.85-1.15); PARTIAL THROMBOPLASTIN TIME 30.4 SEC (26.3-35.5); PROTHROMBIN TIME 10.7 SEC (9.6-11.6)
[2019-09-16] MEDS: HEPARIN 25000 UNITS/250 ML D5W 250 ML IV PRN (06:46)
[2019-09-16 08:00] VITALS: BP 141/84
--- NOTE | 2019-09-16 08:50 | NUR ---
SPOKE WITH DR HUERTA REGARDING A NEW ORDER FOR ABD AORTIC ANGIO WITH RUNOFF FOR THIS PT. REMAINS NPO WITH NO CURRENT C/O PAIN OR RESP DIFFICLULTY, HEPARIN GTT REMAINS AT 23ML/HR
[2019-09-16] MEDS ORDERED: IOHEXOL-350 50ML VIAL IV ONE (09:48)
[2019-09-16] MEDS ORDERED: IOHEXOL-350 75 ML VIAL IV ONE (09:48)
[2019-09-16] MEDS: LISINOPRIL 5 MG TABLET PO SCH (10:35)
[2019-09-16] MEDS: CLOPIDOGREL BISULFATE 75 MG TAB PO SCH (10:35)
[2019-09-16] MEDS: ASPIRIN 81MG TAB.CHEW PO SCH (10:36)
[2019-09-16 11:00] VITALS: BP 120/80
--- NOTE | 2019-09-16 12:02 | NUR ---
PT TAKEN BY W/C IN GOOD CONDITION ACCOMPANIED BY STAFF TRANSPORT WITH IV HEPARIN GTT AT 23ML/HR PATENT AND IN PLACE
--- NOTE | 2019-09-16 12:58 | NUR ---
DCP CM unable to meet with pt, called mother on facesheet, spoke to Steven Costa , discussed dc plans. Pt is independent prior to admission, lives at home with mother. Denies any equipments/services. Feels safe to go back home, still drives, mother able to assist with transportation and needs as necessary. DC plan to home once stable. CM to cont to follow up. Addendum: 09/16/19 at 1300 by LENNY MEDRANO LVN CM Amended: Links added.
--- NOTE | 2019-09-16 13:08 | NUR ---
PT RETURNED TO THE ROOM IN GOOD CONDITION WITH IV HEPARIN IN TOW, NOTE RATE CHANGE PER PROTOCOL (27ML/HR), PT NOW EATING HEART HEALTHY DIET.
[2019-09-16 16:00] VITALS: BP 117/80
--- NOTE | 2019-09-16 17:58 | NUR ---
SPOKE WITH DR HORTON REGARDING PTS BM. THE PT REPORTS FORMED STOOL WITH BLOOD. HE FLUSHED BEFORE WE COULD SEE. HOWEVER, IT IS REPORTED TO THE PHYSICIAN OF APPROX A DOLLAR BILL SIZED RED BLOOD IN THE TRASH. NEW ORDER TO HOLD THE HEPARIN UNTIL AFTER THE PTT IS DRAWN.
[2019-09-16] MEDS: KETOROLAC TROMETHAMINE 30MG/ML IV PRN (18:37)
--- NOTE | 2019-09-16 18:53 | NUR ---
REPORT TO DR HORTON OF PTT 29.3. NEW ORDERS TO RESTART THE HEPARIN PER PROTOCOL AT 31ML/HR. IF THE PT STARTS HAVING BLOODY STOOLS AGAIN, STOP THE HEPARIN
[2019-09-16 20:26] VITALS: BP 127/84
[2019-09-16] MEDS: ATORVASTATIN CALCIUM 20 MG TABLET PO SCH ×2 (20:37→20:39)
[2019-09-16] MEDS: METOPROLOL TARTRATE 25 MG TAB PO SCH ×2 (20:37→20:40)
[2019-09-16 23:44] VITALS: BP 110/68
[2019-09-17] MEDS: KETOROLAC TROMETHAMINE 30MG/ML IV PRN ×2 (02:10→15:39)
[2019-09-17 04:12] VITALS: BP 120/74
[2019-09-17 06:04] LABS: BASOPHILS % (AUTO) 0.4 % (0.0-5.0); EOSINOPHILS % (AUTO) 3.4 % (0.0-8.0); HEMATOCRIT 42.7 % (42-54); LYMPHOCYTES % (AUTO) 39.2 % (21.0-51.0); MEAN CORPUSCULAR HGB CONC 34.2 g/dL (32.0-36.0); MEAN CORPUSCULAR VOLUME 87.9 fL (79-99); MONOCYTES % (AUTO) 6.5 % (3.0-13.0); NEUTROPHILS % (AUTO) 50.1 % (40.0-77.0); PLATELET COUNT (AUTO) 329 K/uL (130-400); RED BLOOD CELL COUNT(AUTO) 4.86 MIL/uL (4.50-6.20); RED CELL DISTRIBUTION WIDTH 13.4 % (11.0-15.5); WHITE BLOOD COUNT (AUTO) 9.8 K/uL (4.8-10.8)
[2019-09-17 06:39] LABS: ALBUMIN 2.7 g/dL (3.5-5.0); BILIRUBIN,TOTAL 0.7 mg/dL (0.2-1.0); POTASSIUM 3.6 mmol/L (3.5-5.1); TOTAL PROTEIN, SERUM 6.5 g/dL (6.0-8.3)
[2019-09-17 08:50] VITALS: BP 136/103
[2019-09-17] MEDS: CLOPIDOGREL BISULFATE 75 MG TAB PO SCH (09:33)
[2019-09-17] MEDS: METOPROLOL TARTRATE 25 MG TAB PO SCH ×2 (09:33→20:50)
[2019-09-17] MEDS: ASPIRIN 81MG TAB.CHEW PO SCH (09:33)
[2019-09-17] MEDS: LISINOPRIL 5 MG TABLET PO SCH (09:35)
[2019-09-17 11:58] VITALS: BP 123/84
[2019-09-17 14:13] LABS: HEMATOCRIT 44.4 % (42-54)
[2019-09-17 16:46] VITALS: BP 115/78
[2019-09-17 20:09] LABS: HEMATOCRIT 45.3 % (42-54)
[2019-09-17 20:14] VITALS: BP 126/81
[2019-09-17] MEDS: ATORVASTATIN CALCIUM 20 MG TABLET PO SCH (20:50)
--- NOTE | 2019-09-17 20:50 | NUR ---
MEDS SHIFT ASSESSMENT DONE, PLEASE REFER TO CHART. DUE MEDS ADMINISTERED, TOLERATED WELL. KEPT COMFORTABLE IN BED. CALL LIGHT WITHIN REACH. Addendum: 09/18/19 at 0036 by CASIMIRO JACOBO RN RN Amended: Links added.
[2019-09-17 23:51] VITALS: BP 132/78
[2019-09-18] MEDS: KETOROLAC TROMETHAMINE 30MG/ML IV PRN ×2 (00:39→12:22)
--- NOTE | 2019-09-18 00:39 | NUR ---
PAIN PT COMPLAINTS OF PAINS ON HIS LEFT LEG. MEDICATED WITH TORADOL IV. KEPT COMFORTABLE IN BED. WILL RE-ASSESS PT.
--- NOTE | 2019-09-18 02:06 | NUR ---
HEPARIN PT'S PTT RESULTS=28.7. BOLUS OF 7000 UNITS ADMINISTERED THEN ADJUSTED DRIP RATE TO 51CC/HR PER PROTOCOL. WILL MONITOR PT.
[2019-09-18 02:08] LABS: BASOPHILS % (AUTO) 0.7 % (0.0-5.0); EOSINOPHILS % (AUTO) 3.3 % (0.0-8.0); HEMATOCRIT 42.9 % (42-54); LYMPHOCYTES % (AUTO) 43.8 % (21.0-51.0); MEAN CORPUSCULAR HEMOGLOBIN 30.2 pg (27.0-33.0); MEAN CORPUSCULAR HGB CONC 34.3 g/dL (32.0-36.0); MEAN CORPUSCULAR VOLUME 88.3 fL (79-99); NEUTROPHILS % (AUTO) 46.9 % (40.0-77.0); PLATELET COUNT (AUTO) 323 K/uL (130-400); RED BLOOD CELL COUNT(AUTO) 4.86 MIL/uL (4.50-6.20); RED CELL DISTRIBUTION WIDTH 13.3 % (11.0-15.5); WHITE BLOOD COUNT (AUTO) 10.2 K/uL (4.8-10.8)
[2019-09-18 02:23] LABS: ALBUMIN 2.8 g/dL (3.5-5.0); BILIRUBIN,TOTAL 0.4 mg/dL (0.2-1.0); POTASSIUM 3.9 mmol/L (3.5-5.1); TOTAL PROTEIN, SERUM 6.5 g/dL (6.0-8.3)
[2019-09-18 03:48] VITALS: BP 129/81
[2019-09-18] MEDS ORDERED: HEPARIN 25000 UNITS/250 ML D5W 250 ML IV ONE (04:37)
--- NOTE | 2019-09-18 04:45 | NUR ---
DRIP PT RESTING WELL. NO DISTRESS NOTED. NO CONCERNS VERBALIZED. NEW HEPARIN BAG HUNG. KEPT RESTED. FOR MORE CARE.
[2019-09-18 07:16] VITALS: BP 129/88
[2019-09-18] MEDS: METOPROLOL TARTRATE 25 MG TAB PO SCH ×2 (10:12→19:49)
[2019-09-18] MEDS: CLOPIDOGREL BISULFATE 75 MG TAB PO SCH (10:12)
[2019-09-18] MEDS: ASPIRIN 81MG TAB.CHEW PO SCH (10:12)
[2019-09-18] MEDS: LISINOPRIL 5 MG TABLET PO SCH (10:12)
[2019-09-18 10:25] VITALS: BP 135/78
[2019-09-18] MEDS: HEPARIN 25000 UNITS/250 ML D5W 250 ML IV PRN ×2 (11:02→18:00)
[2019-09-18] MEDS ORDERED: HEPARIN SODIUM 5000UNIT/ML 1ML VIAL ONE ×2 (11:06→17:54)
[2019-09-18 15:35] VITALS: BP 110/75
--- NOTE | 2019-09-18 18:34 | NUR ---
CARDIO INFORMED DR HUERTA OF FINDINGS OF CTA, STATES PT WILL NEED AORTIC BILATERAL FEMORAL BYPASS, RECEIVED ORDERS TO CONSULT CARDIOVASCULAR SURGEON. PLACED CALL TO DR ALMENDAREZ, INFORMED OF FINDINGS, DR ALMENDAREZ STATES HE WILL SEE PATIENT ONCE HE IS ON THE MEDICAL FLOOR. DR HUERTA ALSO REQUESTING TO BE NOTIFIED WHEN PATIENT IS MOVED TO THE MEDICAL FLOOR.
[2019-09-18 19:00] VITALS: BP 130/78
[2019-09-18] MEDS: ATORVASTATIN CALCIUM 20 MG TABLET PO SCH (19:49)
--- NOTE | 2019-09-18 19:50 | NUR ---
MEDS SHIFT ASSESSMENT DONE, PLEASE REFER TO CHART. DUE MEDS ADMINISTERED, TOLERATED WELL. CONTINUED ON HEPARIN DRIP. PT IS ALREADY AWARE OF NEGATIVE COVID TEST, AWAITING REGULAR MED-SURG BED. KEPT RESTED IN BED. WILL MONITOR PT. Addendum: 09/18/19 at 2053 by CASIMIRO JACOBO RN RN Amended: Links added.
[2019-09-18 21:07] LABS: INR 1.04 (0.85-1.15); PROTHROMBIN TIME 11.2 SEC (9.6-11.6)
[2019-09-18 21:10] LABS: PARTIAL THROMBOPLASTIN TIME 97.7 SEC (26.3-35.5)
--- NOTE | 2019-09-18 23:29 | NUR ---
REPORT REPORT GIVEN TO SHAAN SHEIKH. PENDING TRANSFER OF PT TO MED-SURG AREA.
[2019-09-19] VITALS: BP 119/71
--- NOTE | 2019-09-19 00:35 | NUR ---
PTT PTT RESULTS=29.4. DOSE PER PROTOCOL ADJUSTED AT 19CC/HR. PT TRANSFERRED TO REGULAR MED SURG AREA.
[2019-09-19 04:00] VITALS: BP 139/90
--- NOTE | 2019-09-19 04:43 | NUR ---
bath PT REQUESTING TO GET IN THE SHOWER. TOLD THE PT HE CAN SHOWER BUT HE WOULD HAVE TO REMAIN CONNECTED TO THE IV WHILE INFUSING THE HEPARIN. VERBALIZED OK. REEDUCATED THE IMPORTANCE OF SAFETY/ FALL PRECAUTIONS- VERBALIZED AGREEMENT. IV SITE SECURED WITH TEGADERM. IV SITE COVER WITH PLASTIC BAG.
--- NOTE | 2019-09-19 06:09 | NUR ---
HEPARIN GTT PTT 54.3 AT A THERAPEUTIC RANGE PER PROTOCOL. NO EARL MADE ON INFUSION RATE. VERIFIED PUMP AT BEDSIDE WITH ANTONIO CARPENTER. RATE 19.95 ML/HR, 2100 UNITS/HR.
[2019-09-19 06:26] LABS: BASOPHILS % (AUTO) 0.4 % (0.0-5.0); EOSINOPHILS % (AUTO) 2.6 % (0.0-8.0); HEMATOCRIT 42.8 % (42-54); LYMPHOCYTES % (AUTO) 40.9 % (21.0-51.0); MEAN CORPUSCULAR HEMOGLOBIN 29.9 pg (27.0-33.0); MEAN CORPUSCULAR HGB CONC 34.1 g/dL (32.0-36.0); MEAN CORPUSCULAR VOLUME 87.7 fL (79-99); MONOCYTES % (AUTO) 6.2 % (3.0-13.0); NEUTROPHILS % (AUTO) 49.5 % (40.0-77.0); PLATELET COUNT (AUTO) 346 K/uL (130-400); RED BLOOD CELL COUNT(AUTO) 4.88 MIL/uL (4.50-6.20); RED CELL DISTRIBUTION WIDTH 13.4 % (11.0-15.5); WHITE BLOOD COUNT (AUTO) 11.3 K/uL (4.8-10.8)
[2019-09-19 06:39] LABS: BILIRUBIN,TOTAL 0.6 mg/dL (0.2-1.0); POTASSIUM 3.7 mmol/L (3.5-5.1); TOTAL PROTEIN, SERUM 6.9 g/dL (6.0-8.3)
--- NOTE | 2019-09-19 06:49 | NUR ---
C/O PAIN TO BILAT LE AND BACK. ADMIN TYLENOL PER APR- WILL PASS IN REPORT TO PRIMARY DAY SHIFT NURSE
[2019-09-19] MEDS: HEPARIN 25000 UNITS/250 ML D5W 250 ML IV PRN (08:03)
[2019-09-19 08:07] VITALS: BP 138/86
[2019-09-19] MEDS: ASPIRIN 81MG TAB.CHEW PO SCH (09:32)
[2019-09-19] MEDS: METOPROLOL TARTRATE 25 MG TAB PO SCH (09:32)
[2019-09-19] MEDS: LISINOPRIL 5 MG TABLET PO SCH (09:32)
[2019-09-19] MEDS: CLOPIDOGREL BISULFATE 75 MG TAB PO SCH (09:32)
[2019-09-19 11:54] VITALS: BP 128/87
[2019-09-19 12:36] LABS: INR 1.05 (0.85-1.15); PARTIAL THROMBOPLASTIN TIME 54.5 SEC (26.3-35.5); PROTHROMBIN TIME 11.3 SEC (9.6-11.6)
[2019-09-19] MEDS ORDERED: HEPARIN 25000 UNITS/250 ML D5W 250 ML IV ONE (13:39)
[2019-09-19] MEDS ORDERED: APIX5TAB PO (16:29)
[2019-09-19 16:53] VITALS: BP 122/71
--- NOTE | 2019-09-19 17:45 | NUR ---
DISCHARGE PATIENT GIVEN DISCHARGE INSTRUCTIONS VIA TEACH BACK. 20G PIV TO LFA DISCONTINUED, TIP INTACT. PATIENT TO FOLLOW UP WITH DR. MILENA PERALTA IN [address] CHANDRAKANT ALMENDAREZ ON 10/01/19 AT 0945 TO PLAN BYPASS OUTPATIENT. PATIENT GIVEN COUPON FOR DU BY DR. LIZARRAGA. DR. LIZARRAGA INSTRUCTED PATIENT ON THE IMPORTANCE OF TAKING THE BLOOD THINNER,TO QUIT SMOKING AND USING ILLICIT DRUGS. PATIENT VOICED UNDERSTANDING. PATIENT STABLE AT THIS TIME, WHEELED TO [facility] FOR DISCHARGE BY JIM FREEMAN.
== END 2019-09-19 17:45 | disposition home or self-care (01) | DRG 315 ==
LOC: EDH 14:07 → EDHIP 18:44 → 3BH 09-16 02:57 → 3DH 09-19 01:34
PROVIDERS: ADMIT Internal Medicine; ATTEND Internal Medicine
DX: T82.898A Other specified complication of vascular prosthetic devices, implants and grafts, initial encounter (principal); I96 Gangrene, not elsewhere classified; E78.5 Hyperlipidemia, unspecified; I10 Essential (primary) hypertension; Z20.828 Contact with and (suspected) exposure to other viral communicable diseases; E66.01 Morbid (severe) obesity due to excess calories; F14.10 Cocaine abuse, uncomplicated; I70.201 Unspecified atherosclerosis of native arteries of extremities, right leg; I25.10 Atherosclerotic heart disease of native coronary artery without angina pectoris; Z96.0 Presence of urogenital implants; M62.262 Nontraumatic ischemic infarction of muscle, left lower leg; R53.81 Other malaise; F19.10 Other psychoactive substance abuse, uncomplicated; Y83.8 Other surgical procedures as the cause of abnormal reaction of the patient, or of later complication, without mention of misadventure at the time of the procedure; Y92.89 Other specified places as the place of occurrence of the external cause; Z68.33 Body mass index [BMI] 33.0-33.9, adult; I25.2 Old myocardial infarction; Z91.018 Allergy to other foods; Z82.5 Family history of asthma and other chronic lower respiratory diseases; Z82.49 Family history of ischemic heart disease and other diseases of the circulatory system; Z80.59 Family history of malignant neoplasm of other urinary tract organ; Z95.5 Presence of coronary angioplasty implant and graft; Z91.19 Patient's noncompliance with other medical treatment and regimen
CPT/HCPCS: 36415; 73630; 75635; 80048; 80053; 80061; 80305; 82550; 84484; 85014; 85018; 85025; 85027; 85610; 85730; 87426; 87486; 87581; 87633; 87798; 93005; 93926; G0378; J1644; J1885; Q9967; U0003

== ENCOUNTER 2019-10-10 08:09 | Inpatient (IN) | payer OTHER ==
[~2019-10-10] VITALS: Ht 167.6 cm; Wt 92.4 kg
[~2019-10-10 08:09] MED LIST changes: +APIX5TAB PO
[2019-10-10 08:32] LABS: BASOPHILS % (AUTO) 0.6 % (0.0-5.0); EOSINOPHILS % (AUTO) 3.6 % (0.0-8.0); HEMATOCRIT 45.2 % (42-54); LYMPHOCYTES % (AUTO) 42.3 % (21.0-51.0); MEAN CORPUSCULAR HEMOGLOBIN 30.2 pg (27.0-33.0); MEAN CORPUSCULAR HGB CONC 34.1 g/dL (32.0-36.0); MEAN CORPUSCULAR VOLUME 88.6 fL (79-99); MONOCYTES % (AUTO) 8.6 % (3.0-13.0); NEUTROPHILS % (AUTO) 44.5 % (40.0-77.0); PLATELET COUNT (AUTO) 210 K/uL (130-400); RED CELL DISTRIBUTION WIDTH 13.8 % (11.0-15.5)
[2019-10-10 08:45] LABS: INR 0.95 (0.85-1.15); PARTIAL THROMBOPLASTIN TIME 27.3 SEC (26.3-35.5); PROTHROMBIN TIME 10.3 SEC (9.6-11.6)
[2019-10-10 09:03] LABS: ALBUMIN 3.6 g/dL (3.5-5.0); BILIRUBIN,TOTAL 0.6 mg/dL (0.2-1.0); CREATININE 0.8 mg/dL (0.5-1.5); POTASSIUM 3.9 mmol/L (3.5-5.1); TOTAL PROTEIN, SERUM 7.4 g/dL (6.0-8.3)
[2019-10-10 09:47] LABS: AMPHET/METH SCREEN,URINE NEGATIVE (NEGATIVE); APPEARANCE,URINE Clear (CLEAR); BARBITURATE SCREEN, URINE NEGATIVE (NEGATIVE); BENZODIAZEPINES SCREEN,URINE NEGATIVE (NEGATIVE); BILIRUBIN,URINE Negative (NEGATIVE); CANNABINOID SCREEN,URINE NEGATIVE (NEGATIVE); COCAINE SCREEN,URINE NEGATIVE (NEGATIVE); COLOR,URINE Yellow (YELLOW); GLUCOSE, URINE (UA) Negative (NEGATIVE); KETONES,URINE Negative (NEGATIVE); LEUKOCYTE ESTERASE ,URINE Negative (NEGATIVE); NITRATE,URINE Negative (NEGATIVE); OCCULT BLOOD,URINE Negative (NEGATIVE); OPIATE SCREEN,URINE NEGATIVE (NEGATIVE); PHENCYCLIDINE SCREEN,URINE NEGATIVE (NEGATIVE); PROTEIN,URINE Negative (NEGATIVE)
[2019-10-10] MEDS ORDERED: ONDANSETRON 4 MG TABLET PO PRN (10:45)
[2019-10-10] MEDS ORDERED: ACETAMINOPHEN 325 MG TAB PO PRN (10:45)
[2019-10-10] MEDS ORDERED: PEG 3350/NA SULF,BICARB,CL/KCL 4000 ML SOLN PO ONE (14:55)
[2019-10-10] MEDS ORDERED: BISACODYL 10 MG SUPP.RECT RC ONE ×2 (14:55→18:21)
[2019-10-10 18:03] VITALS: BP 119/88
[2019-10-10 19:55] VITALS: BP 106/69
--- NOTE | 2019-10-10 20:00 | NUR ---
ASSESSMENT /TEACHING AWAKE, ALERT, OX3,NO SOB, NO C/O PAIN AT THIS TIME, EXTENSIVE DISCUSSION REGARDING PLAN FOR SURGERY, HIBICLENS SHOWER AND CLIPPING OF NECK TO ANKLES ORDERED, PATIENT DRINKING GOLYTLEY PREP ORDERED, TOLERATING WELL DISCUSS , NPO POST MIDNITE, PATIENT VERBALIZES UNDERSTANDING VIA TEACH BACK
[2019-10-11] VITALS (15 sets, daily range): BP systolic 106–157; BP diastolic 63–89
--- NOTE | 2019-10-11 | NUR ---
NURSING OBS NPO POST MIDNITE , PATIENT AWARE, DRANK MOST OF GOLTLEY, 80 %, PATIENT REFUSES TO DRINK ANYMORE GOLYTLEY, HAD MULTIPLE LOOSE WATERY STOOLS, RE INSTRUCT IMPORTANCE OF DRINKING ENTIRE GOLYTLEY PREP, PATIENT CONTINUES TO STATE I CAN DRINK NO MORE ILL THROW UP,
[2019-10-11] MEDS ORDERED: CEFAZOLIN SODIUM 1 GM VIAL IVP PRN (11:00)
[2019-10-11] MEDS ORDERED: CEFAZOLIN SODIUM 1 GM VIAL ONE (11:32)
[2019-10-11] MEDS ORDERED: SUCCINYLCHOLINE CHLORIDE 20 MG/ML 10 ML VIAL ONE (11:39)
[2019-10-11] MEDS ORDERED: LIDOCAINE PF 2% 5ML ABBOJECT ONE (11:39)
[2019-10-11] MEDS ORDERED: DEXAMETHASONE SOD PHOSPHATE 10MG/ML 1ML VIAL ONE (11:39)
[2019-10-11] MEDS ORDERED: GLYCOPYRROLATE 1 MG/5 ML SYRINGE ONE ×2 (11:40→14:40)
[2019-10-11] MEDS ORDERED: PROPOFOL 10 MG/ML 20ML VIAL IV ONE ×2 (11:40→14:29)
[2019-10-11] MEDS ORDERED: ONDANSETRON HCL 4 MG/2 ML VIAL ONE (11:40)
[2019-10-11] MEDS ORDERED: NEOSTIGMINE 5MG/5ML SYR IV ONE ×2 (11:41→14:40)
[2019-10-11] MEDS ORDERED: ROCURONIUM 10MG/1ML SYR 10 MG/ML ML ONE ×2 (11:41→12:33)
[2019-10-11] MEDS ORDERED: MIDAZOLAM HCL 1 MG/ML 2ML VIAL ONE (11:41)
[2019-10-11] MEDS ORDERED: FENTANYL CITRATE PF 50 MCG/1 ML 2ML VIAL ONE ×4 (11:41→14:49)
[2019-10-11] MEDS ORDERED: KETAMINE 50MG/ML SYRINGE 50 MG/ML DISP.SYRIN IV ONE (12:35)
[2019-10-11] MEDS: LACTATED RINGERS 1000ML 1,000 ML IV ONE ×2 (12:52→15:12)
[2019-10-11 14:25] LABS: ABG BASE EXCESS -4.3 mmol/L (-2.0-3.0); ABG HCO3 19.3 mmol/L (21.0-28.0); ABG OXYGEN SATURATION 99.2 % (95.0-99.0); ABG PCO2 32 mmHg (35-48)
[2019-10-11] MEDS ORDERED: SODIUM BICARB 50MEQ 50ML VIAL ONE (14:31)
--- NOTE | 2019-10-11 14:54 | NUR ---
SS Eval ordered for: "Trigger" SW contacted primary nurse to inquire about referral and was informed System Triggered Eval due to readmission. Pt. went for surgery and is now in ICU.
[2019-10-11] MEDS ORDERED: MORPHINE SULFATE 2 MG/ML 1ML SYG IVP PRN (15:15)
[2019-10-11 15:28] LABS: HEMATOCRIT 44.2 % (42-54); MEAN CORPUSCULAR HEMOGLOBIN 30.1 pg (27.0-33.0); MEAN CORPUSCULAR HGB CONC 33.9 g/dL (32.0-36.0); MEAN CORPUSCULAR VOLUME 88.6 fL (79-99); RED BLOOD CELL COUNT(AUTO) 4.99 MIL/uL (4.50-6.20); RED CELL DISTRIBUTION WIDTH 13.7 % (11.0-15.5)
[2019-10-11] MEDS: MORPHINE SULFATE 2 MG/ML 1ML SYG IVP PRN ×2 (15:40→18:32)
[2019-10-11 15:51] LABS: INR 0.99 (0.85-1.15); PARTIAL THROMBOPLASTIN TIME 24.7 SEC (26.3-35.5); PROTHROMBIN TIME 10.7 SEC (9.6-11.6)
[2019-10-11 15:55] LABS: ALBUMIN 3.4 g/dL (3.5-5.0); BILIRUBIN,TOTAL 1.1 mg/dL (0.2-1.0); POTASSIUM 4.3 mmol/L (3.5-5.1)
[2019-10-11] MEDS ORDERED: HYDROMORPHONE HCL 0.5 MG/0.5 ML ML ONE (16:54)
[2019-10-11] MEDS: D5W-1/2 NS/20MEQ KCL 1,000 ML IV SCH (17:03)
--- NOTE | 2019-10-11 17:34 | NUR ---
IA- SPOKE TO GIRLFRIENElissa KELLER FOR DISCHARGE PLANNING- STATS ATIENT IS MOSTLY IN A WHEELCHAIR, WALKS SHORT DISTANCES I THE HOME, DOES NOT DRIVE, HAD A WLKER ALSO BUT NO SHOWER CHAIR; STATES PATIENT IS DISABLED DUE TO HISS HEART AND IS PURSUING SSI; STATES HAS BEEN IN PAIN FOR A LONG TIME NO PORVIDER SERIVCES, DCP HOME KRISHNA TO PROVIDE TRANSPORT, CM TO FOLLOW Addendum: 10/11/19 at 1738 by MICHAEL POSADA RN CM Amended: Links added.
[2019-10-11] MEDS ORDERED: HYDROMORPHONE HCL 0.5 MG/0.5 ML ML IVP ONE (18:05)
[2019-10-11] MEDS: MORPHINE SULFATE 4 MG/1ML SYG IVP PRN (20:27)
[2019-10-12] VITALS (16 sets, daily range): BP systolic 112–161; BP diastolic 63–86
[2019-10-12] MEDS: MORPHINE SULFATE 4 MG/1ML SYG IVP PRN (02:26)
[2019-10-12] MEDS: MORPHINE SULFATE 2 MG/ML 1ML SYG IVP PRN (08:00)
[2019-10-12] MEDS ORDERED: HYDRALAZINE HCL 20 MG/ML VIAL IV PRN (10:00)
[2019-10-12] MEDS: D5W-1/2 NS/20MEQ KCL 1,000 ML IV SCH (10:31)
[2019-10-12] MEDS: KETOROLAC TROMETHAMINE 30MG/ML IV PRN ×3 (11:25→23:49)
--- NOTE | 2019-10-12 14:10 | NUR ---
RECEIVED TRANSFER PT FROM ICU, KRISSY RN GIVES REPORT. AT THE MOMENT PT AAO X3 WITH NGT WITH LOW INTERMITTENT SUCTION, NPO (ONLY ICE SHIPS), IV 18G ON RAC, NC 2 2L O2 SAT 99%. ABDOMEN WITH RECENT INCISION WITH MINIMAL BLEEDING FROM RECENT PROCEDURE COVERED WITH CLEAN GAUZES. NO SIGNS OF BLEEDING FROM PREVIOUS ARTERIAL LINE. PT IS PLACE ON BED WITH NO MAYOR CHANGES, NO DISTRESS OR COMPLAINS.
--- NOTE | 2019-10-12 15:21 | NUR ---
GAVE REPORT TO 4TH FLOOR RN. PATIENT READY TO TRANSFER TO [facility]. ROOM IS BEING CLEANED AT THE MOMENT.
--- NOTE | 2019-10-12 20:30 | NUR ---
PATIENT RESTING IN BED. C/O INTERMITTENT PAIN TO ABDOMEN WITH MOVEMENT. DENIES SOB OR CHEST PAIN. BILATERAL PEDAL PULSES PALPABLE. NO HEMATOMA OR SIGNS OF BLEEDING TO INCISION SITES. PATIENT STATES WANTS NG TUBE OUT AND SAYS IT TASTES LIKE PLASTIC. NG TUBE PLACEMENT CHECKED. WILL CONTINUE TO MONITOR PATIENT.
[2019-10-13] MEDS: D5W-1/2 NS/20MEQ KCL 1,000 ML IV SCH ×2 (00:35→08:35)
--- NOTE | 2019-10-13 03:30 | NUR ---
NG TUBE PATIENT REMOVED NG TUBE. PATIENT IS REFUSING NEW NG TUBE INSERTION. WILL NOTIFY IN AM.
[2019-10-13 04:00] VITALS: BP 130/70
[2019-10-13 05:50] LABS: HEMATOCRIT 40.3 % (42-54); MEAN CORPUSCULAR HGB CONC 33.7 g/dL (32.0-36.0); RED BLOOD CELL COUNT(AUTO) 4.53 MIL/uL (4.50-6.20); RED CELL DISTRIBUTION WIDTH 13.6 % (11.0-15.5); WHITE BLOOD COUNT (AUTO) 14.3 K/uL (4.8-10.8)
[2019-10-13 06:08] VITALS: BP 109/57
[2019-10-13] MEDS: KETOROLAC TROMETHAMINE 30MG/ML IV PRN ×4 (06:22→23:44)
[2019-10-13 06:24] LABS: CREATININE 0.9 mg/dL (0.5-1.5); MAGNESIUM 1.6 mg/dL (1.80-2.40); POTASSIUM 3.8 mmol/L (3.5-5.1)
[2019-10-13] MEDS: ENOXAPARIN SODIUM 30 MG/0.3 ML SQ SCH (08:35)
[2019-10-13] MEDS: PANTOPRAZOLE 40 MG/VIAL IVP SCH (09:31)
[2019-10-13 11:00] VITALS: BP 113/69
[2019-10-13 16:00] VITALS: BP 109/58
[2019-10-13 20:00] VITALS: BP 120/62
[2019-10-14] VITALS: BP 114/64
[2019-10-14 04:00] VITALS: BP 102/55
--- NOTE | 2019-10-14 04:15 | NUR ---
Patient had a shower with surgical dressings and IV site wrapped up and secured. Surgical dressings remained dry and intact. Patient is sitting up in recliner at bed side. NPO status maintained. Patient medicated for pain as needed. No new variance at this time.
[2019-10-14] MEDS: D5W-1/2 NS/20MEQ KCL 1,000 ML IV SCH (06:07)
[2019-10-14] MEDS: KETOROLAC TROMETHAMINE 30MG/ML IV PRN (06:59)
[2019-10-14 08:00] VITALS: BP 110/54
[2019-10-14] MEDS: ENOXAPARIN SODIUM 30 MG/0.3 ML SQ SCH (09:20)
[2019-10-14] MEDS: PANTOPRAZOLE 40 MG/VIAL IVP SCH (09:20)
== END 2019-10-14 10:30 | disposition left against medical advice (07) | DRG 269 ==
LOC: EDH 08:09 → EDHIP 09:20 → 3BH 17:30 → DAHIP 10-11 14:59 → 4DH 10-12 16:00
PROVIDERS: ADMIT Internal Medicine Infectious Disease; ATTEND Internal Medicine Infectious Disease
PROC: 04C00ZZ Extirpation of Matter from Abdominal Aorta, Open Approach (ICD-10-PCS; 2019-10-11)
PROC: 04100JK Bypass Abdominal Aorta to Bilateral Femoral Arteries with Synthetic Substitute, Open Approach (ICD-10-PCS; principal; 2019-10-11 11:57)
DX: Q25.1 Coarctation of aorta (principal); I35.0 Nonrheumatic aortic (valve) stenosis; I10 Essential (primary) hypertension; E78.5 Hyperlipidemia, unspecified; J45.909 Unspecified asthma, uncomplicated; E78.00 Pure hypercholesterolemia, unspecified; F19.10 Other psychoactive substance abuse, uncomplicated; J98.4 Other disorders of lung; E11.9 Type 2 diabetes mellitus without complications; F14.10 Cocaine abuse, uncomplicated; G89.18 Other acute postprocedural pain; E66.9 Obesity, unspecified; Z68.32 Body mass index [BMI] 32.0-32.9, adult; I25.2 Old myocardial infarction; Z87.891 Personal history of nicotine dependence; Z79.899 Other long term (current) drug therapy; Z88.8 Allergy status to other drugs, medicaments and biological substances
CPT/HCPCS: 36415; 74018; 80048; 80053; 80305; 81003; 82435; 82550; 82803; 82947; 82948; 83605; 83690; 83735; 84132; 84295; 84484; 85018; 85025; 85027; 85610; 85730; 86850; 86900; 86901; 86923; 93005; 97039; A4344; C1757; C9113; G0378; J0330; J0690; J1100; J1170; J1644; J1650; J1885; J2001; J2250; J2270; J2405; J2704; J2710; J3010; J3480; J3490; J7030; J7040; J7120

== ENCOUNTER 2020-01-20 09:38 | Emergency (ER) | payer OTHER ==
[2020-01-20 10:09] LABS: BASOPHILS % (AUTO) 0.6 % (0.0-5.0); EOSINOPHILS % (AUTO) 1.7 % (0.0-8.0); HEMATOCRIT 50.4 % (42-54); LYMPHOCYTES % (AUTO) 28.1 % (21.0-51.0); MEAN CORPUSCULAR HEMOGLOBIN 27.8 pg (27.0-33.0); MEAN CORPUSCULAR HGB CONC 31.9 g/dL (32.0-36.0); MEAN CORPUSCULAR VOLUME 86.9 fL (79-99); MONOCYTES % (AUTO) 7.9 % (3.0-13.0); NEUTROPHILS % (AUTO) 61.5 % (40.0-77.0); PLATELET COUNT (AUTO) 284 K/uL (130-400); RED CELL DISTRIBUTION WIDTH 14.6 % (11.0-15.5); WHITE BLOOD COUNT (AUTO) 12.6 K/uL (4.8-10.8)
[2020-01-20 10:21] LABS: CREATININE 1.2 mg/dL (0.5-1.5); INR 1.07 (0.85-1.15); PARTIAL THROMBOPLASTIN TIME 26.8 SEC (26.3-35.5); POTASSIUM 3.8 mmol/L (3.5-5.1); PROTHROMBIN TIME 11.5 SEC (9.6-11.6)
[2020-01-20 10:25] LABS: ALBUMIN 3.3 g/dL (3.5-5.0); BILIRUBIN,TOTAL 1.2 mg/dL (0.2-1.0); TOTAL PROTEIN, SERUM 7.5 g/dL (6.0-8.3)
[2020-01-20 10:47] LABS: B-TYPE NATRIURETIC PEPTIDE 845 pg/mL (0-100)
[2020-01-20] MEDS ORDERED: ASPIRIN 325 MG TABLET ONE (10:50)
[2020-01-20 11:18] LABS: APPEARANCE,URINE Clear (CLEAR); BILIRUBIN,URINE Negative (NEGATIVE); COLOR,URINE Dark Yellow (YELLOW); GLUCOSE, URINE (UA) Negative (NEGATIVE); KETONES,URINE Negative (NEGATIVE); LEUKOCYTE ESTERASE ,URINE Negative (NEGATIVE); NITRATE,URINE Negative (NEGATIVE); OCCULT BLOOD,URINE Negative (NEGATIVE); PH,URINE 5.5 (5.0-8.0); PROTEIN,URINE POS 2+ mg/dL (NEGATIVE)
[2020-01-20 11:21] LABS: BACTERIA,URINE Rare /HPF (None Seen); RBC,URINE 0-1 /HPF (0-1); SQUAMOUS EPITHELIAL CELL,UR Rare /HPF (0-2); WBC,URINE 0-1 /HPF (0-1)
[2020-01-20] MEDS ORDERED: FUROSEMIDE 10 MG/ML 4ML VIAL ONE (13:20)
== END 2020-01-20 15:10 | disposition home or self-care (01) ==
LOC: EDH 09:38
DX: I86.1 Scrotal varices (principal); R06.00 Dyspnea, unspecified; J45.909 Unspecified asthma, uncomplicated; E78.00 Pure hypercholesterolemia, unspecified; I10 Essential (primary) hypertension; I25.2 Old myocardial infarction; I25.10 Atherosclerotic heart disease of native coronary artery without angina pectoris; Z90.49 Acquired absence of other specified parts of digestive tract; Z72.0 Tobacco use; Z91.018 Allergy to other foods
CPT/HCPCS: 36415; 71045; 76870; 80053; 81001; 82550; 83605 ×2; 83735; 83880; 84484; 85025; 85610; 85730; 93005; 93971; 96374; 99285; J1940

== ENCOUNTER 2020-02-17 12:32 | Inpatient (IN) | payer OTHER ==
[~2020-02-17] VITALS: Ht 167.6 cm; Wt 89.8 kg
[~2020-02-17 12:32] MED LIST changes: -LISI-617 PO; +LISI5TAB21 PO
[2020-02-17 13:32] LABS: BASOPHILS % (AUTO) 0.3 % (0.0-5.0); EOSINOPHILS % (AUTO) 2.3 % (0.0-8.0); HEMATOCRIT 43.4 % (42-54); LYMPHOCYTES % (AUTO) 17.4 % (21.0-51.0); MEAN CORPUSCULAR HEMOGLOBIN 25.6 pg (27.0-33.0); MEAN CORPUSCULAR VOLUME 79.8 fL (79-99); MONOCYTES % (AUTO) 7.9 % (3.0-13.0); NEUTROPHILS % (AUTO) 71.5 % (40.0-77.0); PLATELET COUNT (AUTO) 445 K/uL (130-400); RED BLOOD CELL COUNT(AUTO) 5.44 MIL/uL (4.50-6.20); RED CELL DISTRIBUTION WIDTH 16.2 % (11.0-15.5); WHITE BLOOD COUNT (AUTO) 13.9 K/uL (4.8-10.8)
[2020-02-17 13:49] LABS: ALBUMIN 1.8 g/dL (3.5-5.0); BILIRUBIN,TOTAL 1.4 mg/dL (0.2-1.0); CREATININE 0.9 mg/dL (0.5-1.5); POTASSIUM 3.1 mmol/L (3.5-5.1)
[2020-02-17] MEDS ORDERED: IOHEXOL-350 75 ML VIAL IV ONE (15:12)
[2020-02-17] MEDS ORDERED: HEPARIN 25,000 UNITS/250ML D5W 250 ML IV ONE (16:25)
[2020-02-17] MEDS ORDERED: VANCOMYCIN 1G/250ML KIT 250 ML IV ONE (16:26)
[2020-02-17] MEDS ORDERED: MORPHINE 4 MG SYG ONE (16:26)
[2020-02-17] MEDS ORDERED: ZOSYN 3.375GM+NS 50ML 50 ML IV ONE (16:26)
[2020-02-17 17:32] LABS: INR 1.24 (0.85-1.15)
[2020-02-17 17:33] LABS: PARTIAL THROMBOPLASTIN TIME 25.6 SEC (26.3-35.5)
[2020-02-17] MEDS ORDERED: RENAL DOSE IV SCH (18:00)
[2020-02-17] MEDS ORDERED: HEPARIN 5,000 UNIT VIAL ONE (18:09)
[2020-02-17] MEDS ORDERED: VANCOMYCIN PROTOCOL PER PHARMACY IV SCH (18:30)
[2020-02-17] MEDS: FUROSEMIDE 20MG VIAL IV SCH (19:00)
[2020-02-17] MEDS ORDERED: VANCOMYCIN 1G 1.25 GM in 0.9% NACL 250ML 250 ML IV ONE (20:15)
[2020-02-17] MEDS ORDERED: MORPHINE 2 MG SYG IVP PRN (20:30)
[2020-02-17] MEDS ORDERED: MORPHINE 2 MG SYG ONE (20:33)
[2020-02-17 20:35] LABS: POTASSIUM 3.3 mmol/L (3.5-5.1)
[2020-02-17 20:36] LABS: CREATININE 0.9 mg/dL (0.5-1.5)
[2020-02-18] MEDS ORDERED: ZOSYN 3.375GM+NS 50ML 50 ML IV SCH (01:00)
[2020-02-18] MEDS ORDERED: MORPHINE 2 MG SYG ONE ×4 (02:07→14:10)
[2020-02-18] MEDS ORDERED: FUROSEMIDE 20MG VIAL ONE (06:27)
[2020-02-18 06:46] LABS: BASOPHILS % (AUTO) 0.6 % (0.0-5.0); EOSINOPHILS % (AUTO) 2.9 % (0.0-8.0); HEMATOCRIT 42.1 % (42-54); LYMPHOCYTES % (AUTO) 22.5 % (21.0-51.0); MEAN CORPUSCULAR HEMOGLOBIN 25.6 pg (27.0-33.0); MEAN CORPUSCULAR HGB CONC 32.3 g/dL (32.0-36.0); MEAN CORPUSCULAR VOLUME 79.1 fL (79-99); MONOCYTES % (AUTO) 8.4 % (3.0-13.0); NEUTROPHILS % (AUTO) 64.8 % (40.0-77.0); PLATELET COUNT (AUTO) 458 K/uL (130-400); RED BLOOD CELL COUNT(AUTO) 5.32 MIL/uL (4.50-6.20); RED CELL DISTRIBUTION WIDTH 16.2 % (11.0-15.5); WHITE BLOOD COUNT (AUTO) 13.1 K/uL (4.8-10.8)
[2020-02-18] MEDS: FUROSEMIDE 20MG VIAL IV SCH ×2 (07:00→20:09)
[2020-02-18 07:07] LABS: INR 1.22 (0.85-1.15); PROTHROMBIN TIME 12.8 SEC (9.6-11.6)
[2020-02-18 07:09] LABS: PARTIAL THROMBOPLASTIN TIME 30.4 SEC (26.3-35.5)
[2020-02-18 07:20] LABS: CREATININE 0.8 mg/dL (0.5-1.5); MAGNESIUM 1.9 mg/dL (1.80-2.40); POTASSIUM 3.3 mmol/L (3.5-5.1)
[2020-02-18] MEDS ORDERED: FUROSEMIDE 40MG VIAL ONE (08:39)
[2020-02-18] MEDS ORDERED: ZOSYN 3.375GM+NS 50ML 50 ML IV ONE (08:39)
[2020-02-18] MEDS ORDERED: HEPARIN 25,000 UNITS/250ML D5W 250 ML IV ONE (08:43)
[2020-02-18] MEDS: VANCOMYCIN 1G/250ML KIT 250 ML IV SCH ×2 (09:00→17:35)
[2020-02-18] MEDS ORDERED: KCL 20 MEQ ERTAB PO SCH (09:15)
[2020-02-18] MEDS ORDERED: KCL 20 MEQ ERTAB PO ONE (09:19)
[2020-02-18] MEDS ORDERED: MAGNESIUM 2GM PREMIX 50ML 50 ML IV SCH (10:00)
[2020-02-18] MEDS ORDERED: MAGNESIUM 2GM PREMIX 50ML 50 ML IV ONE (10:16)
[2020-02-18 12:42] LABS: INR 1.22 (0.85-1.15); PROTHROMBIN TIME 12.8 SEC (9.6-11.6)
[2020-02-18 12:43] LABS: PARTIAL THROMBOPLASTIN TIME 33.8 SEC (26.3-35.5)
[2020-02-18] MEDS: ZOSYN 3.375GM+NS 50ML 50 ML IV SCH ×2 (13:00→20:09)
[2020-02-18 17:34] VITALS: BP 142/87
[2020-02-18 19:09] LABS: MAGNESIUM 2.1 mg/dL (1.80-2.40); POTASSIUM 3.6 mmol/L (3.5-5.1)
[2020-02-18 20:00] VITALS: BP 141/92
[2020-02-18] MEDS: HYDROMORPHONE 2 MG VIAL (2MG/ML) IVP PRN ×3 (20:34→23:52)
[2020-02-19] MEDS ORDERED: MORPHINE 2 MG SYG IM PRN
[2020-02-19 00:17] VITALS: BP 144/75
[2020-02-19] MEDS: VANCOMYCIN 1G/250ML KIT 250 ML IV SCH ×3 (00:38→17:00)
[2020-02-19] MEDS: HYDROMORPHONE 2 MG VIAL (2MG/ML) IVP PRN ×4 (02:25→05:44)
[2020-02-19 04:00] VITALS: BP 132/89
[2020-02-19] MEDS: ZOSYN 3.375GM+NS 50ML 50 ML IV SCH ×3 (04:32→21:40)
[2020-02-19] MEDS ORDERED: PHARMACY COMMUNICATION MISC SCH (05:00)
[2020-02-19] MEDS: MORPHINE 2 MG SYG IV PRN ×4 (05:05→22:13)
[2020-02-19 05:38] LABS: BASOPHILS % (AUTO) 0.6 % (0.0-5.0); EOSINOPHILS % (AUTO) 2.1 % (0.0-8.0); HEMATOCRIT 40.2 % (42-54); LYMPHOCYTES % (AUTO) 19.6 % (21.0-51.0); MEAN CORPUSCULAR HEMOGLOBIN 25.4 pg (27.0-33.0); MEAN CORPUSCULAR HGB CONC 32.1 g/dL (32.0-36.0); MEAN CORPUSCULAR VOLUME 79.3 fL (79-99); MONOCYTES % (AUTO) 8.6 % (3.0-13.0); NEUTROPHILS % (AUTO) 68.5 % (40.0-77.0); PLATELET COUNT (AUTO) 455 K/uL (130-400); RED BLOOD CELL COUNT(AUTO) 5.07 MIL/uL (4.50-6.20); RED CELL DISTRIBUTION WIDTH 16.1 % (11.0-15.5); WHITE BLOOD COUNT (AUTO) 14.1 K/uL (4.8-10.8)
[2020-02-19 06:11] LABS: MAGNESIUM 1.9 mg/dL (1.80-2.40); POTASSIUM 3.8 mmol/L (3.5-5.1)
[2020-02-19 07:30] VITALS: BP 120/80
[2020-02-19] MEDS: METOPROLOL TARTRATE 25 MG TAB PO SCH ×2 (09:54→21:40)
[2020-02-19] MEDS: FUROSEMIDE 20MG VIAL IV SCH (09:55)
[2020-02-19] MEDS ORDERED: ALPRAZOLAM 0.25 MG TABLET PO PRN (10:15)
[2020-02-19 11:00] VITALS: BP 136/90
[2020-02-19 14:19] LABS: INR 1.18 (0.85-1.15); PROTHROMBIN TIME 12.4 SEC (9.6-11.6)
[2020-02-19 14:20] LABS: PARTIAL THROMBOPLASTIN TIME 25.6 SEC (26.3-35.5)
[2020-02-19] MEDS: HEPARIN 25000 UNITS/D5W 250ML IV SCH (15:14)
[2020-02-19 16:00] VITALS: BP 125/70
[2020-02-19 20:13] VITALS: BP 144/74
[2020-02-19] MEDS ORDERED: COMPOUND IV REFRIGERATED 1 EACH IVSOLN MISC PRN (20:30)
[2020-02-19] MEDS: FUROSEMIDE 40MG VIAL IV SCH (21:40)
[2020-02-19] MEDS: VANCOMYCIN 1G 1.5 GM in 0.9% NACL 250ML 250 ML IV SCH (21:57)
[2020-02-20 00:02] VITALS: BP 138/92
[2020-02-20 04:04] LABS: BASOPHILS % (AUTO) 0.4 % (0.0-5.0); EOSINOPHILS % (AUTO) 1.8 % (0.0-8.0); HEMATOCRIT 39.8 % (42-54); LYMPHOCYTES % (AUTO) 22.2 % (21.0-51.0); MEAN CORPUSCULAR HEMOGLOBIN 25.6 pg (27.0-33.0); MEAN CORPUSCULAR HGB CONC 32.4 g/dL (32.0-36.0); MEAN CORPUSCULAR VOLUME 79.1 fL (79-99); MONOCYTES % (AUTO) 9.1 % (3.0-13.0); NEUTROPHILS % (AUTO) 65.2 % (40.0-77.0); PLATELET COUNT (AUTO) 491 K/uL (130-400); RED BLOOD CELL COUNT(AUTO) 5.03 MIL/uL (4.50-6.20); RED CELL DISTRIBUTION WIDTH 16.4 % (11.0-15.5); WHITE BLOOD COUNT (AUTO) 15.6 K/uL (4.8-10.8)
[2020-02-20 04:15] LABS: POTASSIUM 3.5 mmol/L (3.5-5.1)
[2020-02-20] MEDS: HEPARIN 25000 UNITS/D5W 250ML IV SCH (04:31)
[2020-02-20] MEDS: ZOSYN 3.375GM+NS 50ML 50 ML IV SCH ×3 (04:47→23:25)
[2020-02-20] MEDS: MORPHINE 2 MG SYG IV PRN ×3 (04:47→20:36)
[2020-02-20 04:54] VITALS: BP 112/56
[2020-02-20] MEDS: FUROSEMIDE 40MG VIAL IV SCH ×3 (06:22→23:25)
[2020-02-20 08:00] VITALS: BP 111/58
[2020-02-20] MEDS: VANCOMYCIN 1G 1.5 GM in 0.9% NACL 250ML 250 ML IV SCH ×2 (09:00→20:36)
[2020-02-20 12:00] VITALS: BP 155/68
[2020-02-20] MEDS: METOPROLOL TARTRATE 25 MG TAB PO SCH ×2 (12:05→20:36)
[2020-02-20 16:00] VITALS: BP 117/78
[2020-02-20 20:28] VITALS: BP 123/83
[2020-02-20] MEDS ORDERED: ONDANSETRON 4MG INJ IVP PRN (22:30)
[2020-02-21] VITALS (8 sets, daily range): BP systolic 92–163; BP diastolic 60–118
[2020-02-21 01:26] LABS: BASOPHILS % (AUTO) 0.5 % (0.0-5.0); EOSINOPHILS % (AUTO) 1.8 % (0.0-8.0); HEMATOCRIT 42.6 % (42-54); LYMPHOCYTES % (AUTO) 25.4 % (21.0-51.0); MEAN CORPUSCULAR HEMOGLOBIN 25.4 pg (27.0-33.0); MEAN CORPUSCULAR HGB CONC 32.2 g/dL (32.0-36.0); MEAN CORPUSCULAR VOLUME 78.9 fL (79-99); MONOCYTES % (AUTO) 8.7 % (3.0-13.0); NEUTROPHILS % (AUTO) 62.2 % (40.0-77.0); PLATELET COUNT (AUTO) 518 K/uL (130-400); RED CELL DISTRIBUTION WIDTH 16.6 % (11.0-15.5); WHITE BLOOD COUNT (AUTO) 15.4 K/uL (4.8-10.8)
[2020-02-21 01:37] LABS: POTASSIUM 3.6 mmol/L (3.5-5.1)
[2020-02-21] MEDS: MORPHINE 2 MG SYG IV PRN (01:47)
[2020-02-21 01:58] LABS: B-TYPE NATRIURETIC PEPTIDE 1610 pg/mL (0-100)
[2020-02-21] MEDS: HEPARIN 25000 UNITS/D5W 250ML IV SCH (04:53)
[2020-02-21] MEDS: ZOSYN 3.375GM+NS 50ML 50 ML IV SCH (06:38)
[2020-02-21] MEDS: FUROSEMIDE 40MG VIAL IV SCH (06:46)
[2020-02-21] MEDS: METOPROLOL TARTRATE 25 MG TAB PO SCH (08:45)
[2020-02-21] MEDS: VANCOMYCIN 1G 1.5 GM in 0.9% NACL 250ML 250 ML IV SCH (09:21)
[2020-03-02] MEDS ORDERED: DOBUTAMINE 250MG/D5 250ML 250 ML IV ONE (15:03)
[2020-03-07] MEDS ORDERED: FAMOTIDINE 20MG VIAL IV ONE (09:42)
[2020-04-15] MEDS ORDERED: ACETAMINOPHEN 325 MG TAB ONE (04:56)
[2020-05-03] MEDS ORDERED: LACTATED RINGERS 1000ML 1,000 ML IV ONE (21:46)
[2020-06-06] MEDS ORDERED: METOPROLOL TARTRATE 1 MG/ML 5ML VIAL IV ONE (23:41)
== END 2020-02-21 13:15 | disposition left against medical advice (07) | DRG 175 ==
LOC: EDH 12:32 → EDHIP 17:55 → 4DH 02-18 16:43
PROVIDERS: ADMIT Internal Medicine; ATTEND Internal Medicine
PROC: 5A09357 Assistance with Respiratory Ventilation, Less than 24 Consecutive Hours, Continuous Positive Airway Pressure (ICD-10-PCS; principal; 2020-02-17)
PROC: 5A09357 Assistance with Respiratory Ventilation, Less than 24 Consecutive Hours, Continuous Positive Airway Pressure (ICD-10-PCS; 2020-02-18)
DX: I26.99 Other pulmonary embolism without acute cor pulmonale (principal); J96.91 Respiratory failure, unspecified with hypoxia; J86.9 Pyothorax without fistula; R04.2 Hemoptysis; I25.5 Ischemic cardiomyopathy; I73.9 Peripheral vascular disease, unspecified; I11.0 Hypertensive heart disease with heart failure; E66.9 Obesity, unspecified; E87.70 Fluid overload, unspecified; F14.10 Cocaine abuse, uncomplicated; I27.20 Pulmonary hypertension, unspecified; E78.5 Hyperlipidemia, unspecified; E87.6 Hypokalemia; I25.10 Atherosclerotic heart disease of native coronary artery without angina pectoris; Z20.822 Contact with and (suspected) exposure to COVID-19; Z79.01 Long term (current) use of anticoagulants; Z86.711 Personal history of pulmonary embolism; Z91.19 Patient's noncompliance with other medical treatment and regimen; Z95.5 Presence of coronary angioplasty implant and graft; Z82.5 Family history of asthma and other chronic lower respiratory diseases
CPT/HCPCS: 36415; 71045; 71275; 80048; 80053; 80202; 83605; 83735; 83880; 84132; 84484; 85025; 85610; 85730; 87040; 87426; 93005; 93306; 93356; 93971; 94660; G0378; J1170; J1644; J1940; J2270; J2543; J3370; J3475; J7050; Q9967; U0003

== ENCOUNTER 2020-03-07 21:05 | Inpatient (IN) | payer OTHER ==
[~2020-03-07] VITALS: Ht 167.6 cm; Wt 93.5 kg
[2020-03-07] MEDS ORDERED: FUROSEMIDE 40MG VIAL ONE (21:20)
[2020-03-07] MEDS ORDERED: LORAZEPAM 2 MG/ML 1 ML VIAL ONE ×2 (21:21→23:29)
[2020-03-07] MEDS ORDERED: NITROGLYCERIN 1GM OINT 1 INCH/1GM TD ONE (21:23)
[2020-03-07 21:31] LABS: BASOPHILS % (AUTO) 0.5 % (0.0-5.0); EOSINOPHILS % (AUTO) 1.4 % (0.0-8.0); HEMATOCRIT 43.5 % (42-54); LYMPHOCYTES % (AUTO) 25.5 % (21.0-51.0); MEAN CORPUSCULAR HEMOGLOBIN 25.4 pg (27.0-33.0); MEAN CORPUSCULAR HGB CONC 31.7 g/dL (32.0-36.0); MONOCYTES % (AUTO) 7.7 % (3.0-13.0); NEUTROPHILS % (AUTO) 64.4 % (40.0-77.0); PLATELET COUNT (AUTO) 388 K/uL (130-400); RED BLOOD CELL COUNT(AUTO) 5.44 MIL/uL (4.50-6.20); RED CELL DISTRIBUTION WIDTH 19.3 % (11.0-15.5); WHITE BLOOD COUNT (AUTO) 15.5 K/uL (4.8-10.8)
[2020-03-07 21:32] LABS: CREATININE 1.1 mg/dL (0.5-1.5); POTASSIUM 3.7 mmol/L (3.5-5.1)
[2020-03-07 21:34] LABS: INR 1.49 (0.85-1.15); PROTHROMBIN TIME 15.4 SEC (9.6-11.6)
[2020-03-07 21:36] LABS: PARTIAL THROMBOPLASTIN TIME 28.6 SEC (26.3-35.5)
[2020-03-07 21:37] LABS: ALBUMIN 2.6 g/dL (3.5-5.0); BILIRUBIN,TOTAL 1.4 mg/dL (0.2-1.0); CRP QUANTITATIVE 71.7 mg/L (0.00-9.0); TOTAL PROTEIN, SERUM 7.5 g/dL (6.0-8.3)
[2020-03-07] MEDS ORDERED: CEFTRIAXONE 1G VIAL ONE (21:48)
[2020-03-07] MEDS ORDERED: AZITHROMYCIN 250 MG TABLET PO ONE (21:48)
[2020-03-07 21:54] LABS: APPEARANCE,URINE Clear (CLEAR); BILIRUBIN,URINE Negative (NEGATIVE); COLOR,URINE Yellow (YELLOW); GLUCOSE, URINE (UA) Negative (NEGATIVE); KETONES,URINE Negative (NEGATIVE); LEUKOCYTE ESTERASE ,URINE Negative (NEGATIVE); NITRATE,URINE Negative (NEGATIVE); OCCULT BLOOD,URINE Negative (NEGATIVE); PROTEIN,URINE POS 1+ mg/dL (NEGATIVE)
[2020-03-07 21:58] LABS: B-TYPE NATRIURETIC PEPTIDE 1690 pg/mL (0-100)
[2020-03-07 22:01] LABS: AMPHET/METH SCREEN,URINE NEGATIVE (NEGATIVE); BARBITURATE SCREEN, URINE NEGATIVE (NEGATIVE); BENZODIAZEPINES SCREEN,URINE NEGATIVE (NEGATIVE); CANNABINOID SCREEN,URINE NEGATIVE (NEGATIVE); COCAINE SCREEN,URINE POSITIVE (NEGATIVE); OPIATE SCREEN,URINE NEGATIVE (NEGATIVE); PHENCYCLIDINE SCREEN,URINE NEGATIVE (NEGATIVE)
[2020-03-07] MEDS ORDERED: ENOXAPARIN SODIUM 100 MG/1 ML SQ ONE (22:06)
[2020-03-07 22:16] LABS: BACTERIA,URINE None Seen /HPF (None Seen); MUCUS,URINE Few LPF (None Seen); RBC,URINE None Seen /HPF (0-1); SQUAMOUS EPITHELIAL CELL,UR Few /HPF (0-2); WBC,URINE None Seen /HPF (0-1)
[2020-03-07] MEDS ORDERED: IOHEXOL-350 75 ML VIAL IV ONE (22:21)
[2020-03-08] MEDS ORDERED: ONDANSETRON 4MG INJ IV PRN
[2020-03-08] MEDS ORDERED: ACETAMINOPHEN 325 MG TAB PO PRN
[2020-03-08] MEDS ORDERED: MAG/ALUM/SIMETH 30 ML UDCUP PO PRN
[2020-03-08] MEDS ORDERED: NITROGLYCERIN 0.4 MG SL TAB SL PRN
[2020-03-08] MEDS ORDERED: VANCOMYCIN PROTOCOL PER PHARMACY IV PRN
[2020-03-08] MEDS ORDERED: PHARMACY COMMUNICATION MISC PRN
[2020-03-08] MEDS ORDERED: MORPHINE 4 MG SYG IV PRN
[2020-03-08] MEDS ORDERED: MORPHINE 2 MG SYG IV PRN
[2020-03-08] MEDS ORDERED: DIPHENHYDRAMINE HCL 25 MG CAPSULE PO PRN
[2020-03-08] MEDS ORDERED: VANCOMYCIN 1G/250ML KIT 250 ML IV SCH
[2020-03-08] MEDS ORDERED: LACTULOSE 20 GM/30 ML UDCUP PO PRN
[2020-03-08] MEDS ORDERED: DiphenhydrAMINE HCL 50 MG/ML VIAL IV PRN
[2020-03-08] MEDS ORDERED: LORAZEPAM 2 MG/ML 1 ML VIAL IVP PRN
[2020-03-08] MEDS ORDERED: GUAIFENESIN-DM 200/20 MG 10 ML PO PRN
[2020-03-08] MEDS ORDERED: RENAL DOSE IV SCH (00:15)
[2020-03-08 00:16] LABS: ALCOHOL, BLOOD < 3 mg/dL (0-10); PHOSPHORUS 2.9 mg/dL (2.5-4.9)
[2020-03-08] MEDS ORDERED: PHARMACY COMMUNICATION MISC SCH (01:00)
[2020-03-08] MEDS ORDERED: VANCOMYCIN 1G/250ML KIT 250 ML IV ONE ×2 (01:09→08:05)
[2020-03-08 03:57] LABS: BASOPHILS % (AUTO) 0.5 % (0.0-5.0); EOSINOPHILS % (AUTO) 1.1 % (0.0-8.0); HEMATOCRIT 44.4 % (42-54); LYMPHOCYTES % (AUTO) 26.1 % (21.0-51.0); MEAN CORPUSCULAR HEMOGLOBIN 25.7 pg (27.0-33.0); MEAN CORPUSCULAR HGB CONC 32.2 g/dL (32.0-36.0); MEAN CORPUSCULAR VOLUME 79.7 fL (79-99); NEUTROPHILS % (AUTO) 64.8 % (40.0-77.0); PLATELET COUNT (AUTO) 445 K/uL (130-400); RED BLOOD CELL COUNT(AUTO) 5.57 MIL/uL (4.50-6.20); RED CELL DISTRIBUTION WIDTH 19.6 % (11.0-15.5); WHITE BLOOD COUNT (AUTO) 16.6 K/uL (4.8-10.8)
[2020-03-08 04:01] LABS: ALBUMIN 2.6 g/dL (3.5-5.0); BILIRUBIN,TOTAL 1.7 mg/dL (0.2-1.0); CREATININE 0.9 mg/dL (0.5-1.5); CRP QUANTITATIVE 69.7 mg/L (0.00-9.0); POTASSIUM 4.4 mmol/L (3.5-5.1); TOTAL PROTEIN, SERUM 7.1 g/dL (6.0-8.3)
[2020-03-08] MEDS: ZOSYN 3.375GM+NS 50ML 50 ML IV SCH ×3 (05:00→21:00)
[2020-03-08] MEDS ORDERED: ZOSYN 3.375GM+NS 50ML 50 ML IV ONE ×3 (05:01→20:42)
[2020-03-08] MEDS ORDERED: COMPOUND IV REFRIGERATED 1 EACH IVSOLN MISC PRN (06:30)
[2020-03-08] MEDS ORDERED: ENOXAPARIN SODIUM 100 MG/1 ML SQ ONE ×2 (08:03→20:41)
[2020-03-08] MEDS ORDERED: ASPIRIN 325 MG TABLET ONE (08:04)
[2020-03-08] MEDS ORDERED: THIAMINE HCL 100 MG/ML 2ML VIAL ONE (08:04)
[2020-03-08] MEDS ORDERED: FUROSEMIDE 20MG VIAL ONE (08:04)
[2020-03-08] MEDS ORDERED: MULTIVITAMIN TABLET ONE (08:05)
[2020-03-08] MEDS ORDERED: FOLIC ACID 1 MG TABLET ONE (08:05)
[2020-03-08] MEDS ORDERED: FAMOTIDINE 20MG VIAL IV ONE ×2 (08:06→20:43)
[2020-03-08] MEDS ORDERED: LORAZEPAM 2 MG/ML 1 ML VIAL ONE (08:06)
[2020-03-08] MEDS ORDERED: CHLORDIAZEPOXIDE HCL 25 MG CAP ONE (08:07)
[2020-03-08 08:49] LABS: ABG BASE EXCESS 3.1 mmol/L (-2.0-3.0); ABG OXYGEN SATURATION 93.6 % (95.0-99.0); ABG PCO2 39 mmHg (35-48)
[2020-03-08] MEDS ORDERED: ENOXAPARIN SODIUM 1 MG/KG SQ SCH (09:00)
[2020-03-08] MEDS: THIAMINE HCL 100 MG/ML 2ML VIAL IM SCH (09:00)
[2020-03-08] MEDS: VANCOMYCIN 1G 1.25 GM in 0.9% NACL 250ML 250 ML IV SCH ×2 (09:00→21:00)
[2020-03-08] MEDS ORDERED: FUROSEMIDE 20MG VIAL IV SCH (09:00)
[2020-03-08] MEDS: ASPIRIN 325MG EC TAB PO SCH ×2 (09:00)
[2020-03-08] MEDS: MULTIVITAMIN TABLET PO SCH (09:00)
[2020-03-08] MEDS: FAMOTIDINE 20MG VIAL IV SCH ×2 (09:00→21:00)
[2020-03-08] MEDS: FOLIC ACID 1 MG TABLET PO SCH (09:00)
[2020-03-08] MEDS: ENOXAPARIN SODIUM 100 MG/1 ML SQ SCH ×2 (09:00→21:00)
[2020-03-08] MEDS ORDERED: MAGNESIUM 2GM PREMIX 50ML 50 ML IV SCH (09:15)
[2020-03-08] MEDS: FUROSEMIDE 20MG VIAL IV SCH ×2 (14:00→21:00)
[2020-03-08] MEDS ORDERED: MORPHINE 2 MG SYG ONE (15:42)
[2020-03-08] MEDS ORDERED: FUROSEMIDE 40MG VIAL ONE (20:42)
[2020-03-08] MEDS ORDERED: MORPHINE 4 MG SYG ONE (20:43)
[2020-03-08 21:20] LABS: CREATININE 1.2 mg/dL (0.5-1.5); POTASSIUM 3.9 mmol/L (3.5-5.1)
[2020-03-09 03:52] LABS: BASOPHILS % (AUTO) 0.6 % (0.0-5.0); EOSINOPHILS % (AUTO) 0.9 % (0.0-8.0); HEMATOCRIT 41.8 % (42-54); LYMPHOCYTES % (AUTO) 29.1 % (21.0-51.0); MEAN CORPUSCULAR HEMOGLOBIN 25.6 pg (27.0-33.0); MEAN CORPUSCULAR HGB CONC 32.1 g/dL (32.0-36.0); MEAN CORPUSCULAR VOLUME 79.8 fL (79-99); MONOCYTES % (AUTO) 7.5 % (3.0-13.0); NEUTROPHILS % (AUTO) 61.4 % (40.0-77.0); PLATELET COUNT (AUTO) 418 K/uL (130-400); RED BLOOD CELL COUNT(AUTO) 5.24 MIL/uL (4.50-6.20); RED CELL DISTRIBUTION WIDTH 19.5 % (11.0-15.5); WHITE BLOOD COUNT (AUTO) 13.9 K/uL (4.8-10.8)
[2020-03-09 04:05] LABS: ALBUMIN 2.4 g/dL (3.5-5.0); BILIRUBIN,TOTAL 1.7 mg/dL (0.2-1.0); POTASSIUM 3.9 mmol/L (3.5-5.1); TOTAL PROTEIN, SERUM 7.1 g/dL (6.0-8.3)
[2020-03-09] MEDS ORDERED: ZOSYN 3.375GM+NS 50ML 50 ML IV ONE (04:30)
[2020-03-09] MEDS: ZOSYN 3.375GM+NS 50ML 50 ML IV SCH ×3 (05:00→20:59)
[2020-03-09] MEDS ORDERED: FUROSEMIDE 20MG VIAL ONE (07:59)
[2020-03-09] MEDS ORDERED: ENOXAPARIN SODIUM 100 MG/1 ML SQ ONE (07:59)
[2020-03-09] MEDS ORDERED: ASPIRIN 325 MG TABLET ONE (07:59)
[2020-03-09] MEDS ORDERED: MULTIVITAMIN TABLET ONE (07:59)
[2020-03-09] MEDS ORDERED: THIAMINE HCL 100 MG/ML 2ML VIAL ONE (07:59)
[2020-03-09] MEDS ORDERED: FOLIC ACID 1 MG TABLET ONE (08:00)
[2020-03-09] MEDS ORDERED: FAMOTIDINE 20MG VIAL IV ONE (08:00)
[2020-03-09] MEDS: FAMOTIDINE 20MG VIAL IV SCH ×2 (09:00→21:00)
[2020-03-09] MEDS: THIAMINE HCL 100 MG/ML 2ML VIAL IM SCH (09:00)
[2020-03-09] MEDS: FOLIC ACID 1 MG TABLET PO SCH (09:00)
[2020-03-09] MEDS: MULTIVITAMIN TABLET PO SCH (09:00)
[2020-03-09] MEDS: ASPIRIN 325MG EC TAB PO SCH (09:00)
[2020-03-09] MEDS: VANCOMYCIN 1G 1.25 GM in 0.9% NACL 250ML 250 ML IV SCH ×2 (09:00→20:59)
[2020-03-09] MEDS: ENOXAPARIN SODIUM 100 MG/1 ML SQ SCH (09:00)
[2020-03-09] MEDS: FUROSEMIDE 20MG VIAL IV SCH ×3 (09:00→21:00)
[2020-03-09 11:38] VITALS: BP 134/106
[2020-03-09] MEDS ORDERED: LACTATED RINGERS 1000ML 1,000 ML IV SCH (12:15)
[2020-03-09 12:56] LABS: INR 1.39 (0.85-1.15); PROTHROMBIN TIME 14.4 SEC (9.6-11.6)
[2020-03-09 16:13] VITALS: BP 123/91
[2020-03-09] MEDS ORDERED: HEPARIN 25,000 UNITS/250ML D5W 250 ML IV SCH (18:15)
[2020-03-09 20:00] VITALS: BP 142/105
[2020-03-09] MEDS ORDERED: PHARMACY COMMUNICATION MISC SCH (20:00)
[2020-03-09] MEDS ORDERED: HEPARIN 5,000 UNIT VIAL ONE (20:28)
[2020-03-09] MEDS: ACETAMINOPHEN 325 MG TAB PO PRN (21:01)
[2020-03-10] VITALS: BP 148/74
[2020-03-10] MEDS: CHLORDIAZEPOXIDE HCL 25 MG CAP PO PRN (00:27)
[2020-03-10 03:07] LABS: BASOPHILS % (AUTO) 0.4 % (0.0-5.0); EOSINOPHILS % (AUTO) 0.8 % (0.0-8.0); HEMATOCRIT 30.5 % (42-54); LYMPHOCYTES % (AUTO) 60.6 % (21.0-51.0); MEAN CORPUSCULAR HEMOGLOBIN 24.9 pg (27.0-33.0); MEAN CORPUSCULAR HGB CONC 31.1 g/dL (32.0-36.0); MEAN CORPUSCULAR VOLUME 80.1 fL (79-99); MONOCYTES % (AUTO) 4.4 % (3.0-13.0); NEUTROPHILS % (AUTO) 32.9 % (40.0-77.0); PLATELET COUNT (AUTO) 305 K/uL (130-400); RED BLOOD CELL COUNT(AUTO) 3.81 MIL/uL (4.50-6.20); RED CELL DISTRIBUTION WIDTH 18.9 % (11.0-15.5); WHITE BLOOD COUNT (AUTO) 9.1 K/uL (4.8-10.8)
[2020-03-10 03:20] LABS: ALBUMIN 1.7 g/dL (3.5-5.0); BILIRUBIN,TOTAL 2.2 mg/dL (0.2-1.0); CREATININE 1.3 mg/dL (0.5-1.5); CRP QUANTITATIVE 43.7 mg/L (0.00-9.0); TOTAL PROTEIN, SERUM 5.5 g/dL (6.0-8.3)
[2020-03-10 03:25] LABS: POTASSIUM 2.7 mmol/L (3.5-5.1)
[2020-03-10 04:00] VITALS: BP 124/94
[2020-03-10 04:02] LABS: BAND NEUTROPHILS % (MANUAL) 2 % (0-2); BASOPHILS % (MANUAL) 1 % (0-2); LYMPHOCYTES % (MANUAL) 11 % (22-44); MAN.DIFF COMMENT-IMPRESSION MANUAL DIFFERENTIAL; MONOCYTES % (MANUAL) 5 % (2-9); REACTIVE LYMPHOCYTES 1 % (0-0); SEGMENTED NEUTROPHILS % 80 % (40-70)
[2020-03-10 04:03] LABS: PLATELET MORPHOLOGY COMMENT ADEQUATE
[2020-03-10] MEDS: ZOSYN 3.375GM+NS 50ML 50 ML IV SCH ×4 (04:28→21:00)
[2020-03-10] MEDS ORDERED: POTASSIUM CHLORIDE 20MEQ/100ML 100 ML IV PRN ×2 (04:30)
[2020-03-10] MEDS ORDERED: POTASSIUM CHLORIDE 10% ELIXIR 20 MEQ/15 ML UDCUP PO PRN (04:30)
[2020-03-10] MEDS ORDERED: POTASSIUM CHLORIDE 20MEQ/100ML 100 ML IV ONE (04:34)
[2020-03-10 06:36] LABS: HEMATOCRIT 42.9 % (42-54); MEAN CORPUSCULAR HEMOGLOBIN 24.7 pg (27.0-33.0); MEAN CORPUSCULAR HGB CONC 31.2 g/dL (32.0-36.0); MEAN CORPUSCULAR VOLUME 79.2 fL (79-99); RED BLOOD CELL COUNT(AUTO) 5.42 MIL/uL (4.50-6.20); RED CELL DISTRIBUTION WIDTH 19.8 % (11.0-15.5); WHITE BLOOD COUNT (AUTO) 11.8 K/uL (4.8-10.8)
[2020-03-10 07:16] LABS: ALBUMIN 2.4 g/dL (3.5-5.0); BILIRUBIN,TOTAL 1.9 mg/dL (0.2-1.0); CREATININE 1.1 mg/dL (0.5-1.5); POTASSIUM 3.5 mmol/L (3.5-5.1); TOTAL PROTEIN, SERUM 7.3 g/dL (6.0-8.3)
[2020-03-10 07:48] VITALS: BP 128/66
[2020-03-10] MEDS: THIAMINE HCL 100 MG/ML 2ML VIAL IM SCH (09:00)
[2020-03-10] MEDS: MULTIVITAMIN TABLET PO SCH (09:18)
[2020-03-10] MEDS: FOLIC ACID 1 MG TABLET PO SCH (09:19)
[2020-03-10] MEDS: KCL 20 MEQ ERTAB PO PRN (09:19)
[2020-03-10] MEDS: FUROSEMIDE 20MG VIAL IV SCH ×3 (09:20→20:25)
[2020-03-10] MEDS: FAMOTIDINE 20MG VIAL IV SCH ×2 (09:20→20:25)
[2020-03-10] MEDS: VANCOMYCIN 1G 1.25 GM in 0.9% NACL 250ML 250 ML IV SCH ×2 (09:20→20:26)
[2020-03-10 11:46] VITALS: BP 127/99
[2020-03-10] MEDS: LORAZEPAM 2 MG/ML 1 ML VIAL IVP PRN (15:58)
[2020-03-10 16:09] VITALS: BP 138/94
[2020-03-10 19:30] VITALS: BP 133/98
[2020-03-10] MEDS: ENOXAPARIN SODIUM 100 MG/1 ML SQ SCH (20:26)
[2020-03-11] VITALS (7 sets, daily range): BP systolic 127–155; BP diastolic 71–102
[2020-03-11] MEDS: CHLORDIAZEPOXIDE HCL 25 MG CAP PO PRN ×2 (01:06→23:51)
[2020-03-11] MEDS: ACETAMINOPHEN 325 MG TAB PO PRN ×2 (01:07→20:44)
[2020-03-11 04:02] LABS: BASOPHILS % (AUTO) 0.4 % (0.0-5.0); EOSINOPHILS % (AUTO) 1.2 % (0.0-8.0); LYMPHOCYTES % (AUTO) 23.4 % (21.0-51.0); MEAN CORPUSCULAR HEMOGLOBIN 25.1 pg (27.0-33.0); MEAN CORPUSCULAR HGB CONC 31.7 g/dL (32.0-36.0); MEAN CORPUSCULAR VOLUME 79.3 fL (79-99); MONOCYTES % (AUTO) 7.8 % (3.0-13.0); NEUTROPHILS % (AUTO) 66.7 % (40.0-77.0); PLATELET COUNT (AUTO) 415 K/uL (130-400); RED BLOOD CELL COUNT(AUTO) 5.17 MIL/uL (4.50-6.20); RED CELL DISTRIBUTION WIDTH 19.8 % (11.0-15.5); WHITE BLOOD COUNT (AUTO) 13.9 K/uL (4.8-10.8)
[2020-03-11 04:15] LABS: CREATININE 1.3 mg/dL (0.5-1.5); POTASSIUM 3.3 mmol/L (3.5-5.1)
[2020-03-11 04:23] LABS: B-TYPE NATRIURETIC PEPTIDE 2490 pg/mL (0-100)
[2020-03-11] MEDS: ASPIRIN 325MG EC TAB PO SCH (08:53)
[2020-03-11] MEDS: VANCOMYCIN 1G 1.25 GM in 0.9% NACL 250ML 250 ML IV SCH ×2 (08:53→20:19)
[2020-03-11] MEDS: MULTIVITAMIN TABLET PO SCH (08:53)
[2020-03-11] MEDS: FAMOTIDINE 20MG VIAL IV SCH ×2 (08:54→20:19)
[2020-03-11] MEDS: KCL 20 MEQ ERTAB PO PRN ×2 (08:54→12:05)
[2020-03-11] MEDS: FUROSEMIDE 20MG VIAL IV SCH ×3 (08:54→20:20)
[2020-03-11] MEDS: ENOXAPARIN SODIUM 100 MG/1 ML SQ SCH ×2 (08:55→20:21)
[2020-03-11] MEDS: ZOSYN 3.375GM+NS 50ML 50 ML IV SCH ×2 (12:53→20:19)
[2020-03-12 03:42] LABS: BASOPHILS % (AUTO) 0.5 % (0.0-5.0); HEMATOCRIT 43.3 % (42-54); LYMPHOCYTES % (AUTO) 27.8 % (21.0-51.0); MEAN CORPUSCULAR HEMOGLOBIN 24.6 pg (27.0-33.0); MEAN CORPUSCULAR HGB CONC 31.2 g/dL (32.0-36.0); MONOCYTES % (AUTO) 7.4 % (3.0-13.0); NEUTROPHILS % (AUTO) 61.7 % (40.0-77.0); PLATELET COUNT (AUTO) 436 K/uL (130-400); RED BLOOD CELL COUNT(AUTO) 5.48 MIL/uL (4.50-6.20); RED CELL DISTRIBUTION WIDTH 19.8 % (11.0-15.5); WHITE BLOOD COUNT (AUTO) 16.2 K/uL (4.8-10.8)
[2020-03-12 03:55] LABS: CREATININE 1.4 mg/dL (0.5-1.5); POTASSIUM 3.5 mmol/L (3.5-5.1)
[2020-03-12 04:10] VITALS: BP 119/85
[2020-03-12] MEDS: ZOSYN 3.375GM+NS 50ML 50 ML IV SCH ×3 (05:16→21:01)
[2020-03-12] MEDS: KCL 20 MEQ ERTAB PO PRN ×2 (05:17→10:13)
[2020-03-12] MEDS: FUROSEMIDE 20MG VIAL IV SCH ×3 (05:23→21:02)
[2020-03-12 07:32] VITALS: BP 130/94
[2020-03-12] MEDS: CHLORDIAZEPOXIDE HCL 25 MG CAP PO PRN ×3 (08:32→22:08)
[2020-03-12] MEDS: MULTIVITAMIN TABLET PO SCH (08:33)
[2020-03-12] MEDS: FAMOTIDINE 20MG VIAL IV SCH ×2 (08:33→21:02)
[2020-03-12] MEDS: ASPIRIN 325MG EC TAB PO SCH (08:33)
[2020-03-12] MEDS: VANCOMYCIN 1G 1.25 GM in 0.9% NACL 250ML 250 ML IV SCH ×2 (08:34→21:02)
[2020-03-12] MEDS: ENOXAPARIN SODIUM 100 MG/1 ML SQ SCH ×2 (08:34→21:01)
[2020-03-12 08:52] LABS: ABG BASE EXCESS 4.7 mmol/L (-2.0-3.0); ABG HCO3 27.1 mmol/L (21.0-28.0); ABG OXYGEN SATURATION 96.3 % (95.0-99.0); ABG PCO2 33 mmHg (35-48)
[2020-03-12] MEDS ORDERED: KCL 20 MEQ ERTAB PO PRN (10:15)
[2020-03-12 11:57] VITALS: BP 124/90
[2020-03-12 15:52] VITALS: BP 128/99
[2020-03-12 19:32] VITALS: BP 136/90
[2020-03-12] MEDS: LORAZEPAM 2 MG/ML 1 ML VIAL IVP PRN (23:38)
[2020-03-13] VITALS (7 sets, daily range): BP systolic 125–144; BP diastolic 71–97
[2020-03-13] MEDS: ZOSYN 3.375GM+NS 50ML 50 ML IV SCH ×4 (05:31→21:00)
[2020-03-13] MEDS: FUROSEMIDE 20MG VIAL IV SCH ×3 (05:32→20:13)
[2020-03-13 05:45] LABS: BASOPHILS % (AUTO) 0.5 % (0.0-5.0); EOSINOPHILS % (AUTO) 1.4 % (0.0-8.0); HEMATOCRIT 40.4 % (42-54); LYMPHOCYTES % (AUTO) 25.7 % (21.0-51.0); MEAN CORPUSCULAR HGB CONC 31.4 g/dL (32.0-36.0); MEAN CORPUSCULAR VOLUME 79.5 fL (79-99); MONOCYTES % (AUTO) 6.5 % (3.0-13.0); NEUTROPHILS % (AUTO) 65.3 % (40.0-77.0); PLATELET COUNT (AUTO) 371 K/uL (130-400); RED BLOOD CELL COUNT(AUTO) 5.08 MIL/uL (4.50-6.20); RED CELL DISTRIBUTION WIDTH 19.6 % (11.0-15.5); WHITE BLOOD COUNT (AUTO) 13.3 K/uL (4.8-10.8)
[2020-03-13 06:05] LABS: CREATININE 1.3 mg/dL (0.5-1.5); POTASSIUM 3.4 mmol/L (3.5-5.1)
[2020-03-13] MEDS: ENOXAPARIN SODIUM 100 MG/1 ML SQ SCH ×2 (08:41→20:13)
[2020-03-13] MEDS: CHLORDIAZEPOXIDE HCL 25 MG CAP PO PRN ×3 (08:41→20:19)
[2020-03-13] MEDS: ASPIRIN 325MG EC TAB PO SCH (08:41)
[2020-03-13] MEDS: FAMOTIDINE 20MG VIAL IV SCH ×2 (08:41→20:12)
[2020-03-13] MEDS: MULTIVITAMIN TABLET PO SCH (08:41)
[2020-03-13] MEDS: VANCOMYCIN 1G 1.25 GM in 0.9% NACL 250ML 250 ML IV SCH ×2 (08:42→20:13)
[2020-03-13] MEDS: ACETAMINOPHEN 325 MG TAB PO PRN (10:30)
[2020-03-13] MEDS: KCL 20 MEQ ERTAB PO PRN (13:01)
[2020-03-13] MEDS ORDERED: ZIPRASIDONE HCL 20 MG CAPSULE PO PRN (16:00)
[2020-03-13] MEDS ORDERED: TEMAZEPAM 7.5 MG CAPSULE PO PRN (16:45)
[2020-03-13] MEDS: TRAZODONE HCL 50 MG TAB PO PRN (22:27)
[2020-03-14 03:00] VITALS: BP 158/96
[2020-03-14] MEDS: ZOSYN 3.375GM+NS 50ML 50 ML IV SCH ×3 (05:00→20:00)
[2020-03-14] MEDS: FUROSEMIDE 20MG VIAL IV SCH ×3 (05:00→19:59)
[2020-03-14 08:36] VITALS: BP 118/86
[2020-03-14] MEDS: FAMOTIDINE 20MG VIAL IV SCH ×2 (10:31→19:58)
[2020-03-14] MEDS: ASPIRIN 325MG EC TAB PO SCH (10:31)
[2020-03-14] MEDS: MULTIVITAMIN TABLET PO SCH (10:31)
[2020-03-14] MEDS: ENOXAPARIN SODIUM 100 MG/1 ML SQ SCH ×2 (10:32→19:59)
[2020-03-14] MEDS: VANCOMYCIN 1G 1.25 GM in 0.9% NACL 250ML 250 ML IV SCH ×2 (10:32→20:00)
[2020-03-14 12:00] VITALS: BP 144/100
[2020-03-14 16:00] VITALS: BP 129/90
[2020-03-14] MEDS: ACETAMINOPHEN 325 MG TAB PO PRN (17:35)
[2020-03-14 19:00] VITALS: BP 122/92
[2020-03-14 23:00] VITALS: BP 136/105
[2020-03-15] VITALS (7 sets, daily range): BP systolic 123–141; BP diastolic 72–100
[2020-03-15] MEDS: TRAZODONE HCL 50 MG TAB PO PRN ×2 (00:31→21:50)
[2020-03-15] MEDS: ZOSYN 3.375GM+NS 50ML 50 ML IV SCH ×3 (06:25→22:01)
[2020-03-15] MEDS: FUROSEMIDE 20MG VIAL IV SCH ×3 (06:25→21:51)
[2020-03-15 07:58] LABS: BASOPHILS % (AUTO) 0.4 % (0.0-5.0); EOSINOPHILS % (AUTO) 1.8 % (0.0-8.0); HEMATOCRIT 41.4 % (42-54); LYMPHOCYTES % (AUTO) 23.4 % (21.0-51.0); MEAN CORPUSCULAR HEMOGLOBIN 25.1 pg (27.0-33.0); MEAN CORPUSCULAR HGB CONC 31.4 g/dL (32.0-36.0); MEAN CORPUSCULAR VOLUME 80.1 fL (79-99); NEUTROPHILS % (AUTO) 66.8 % (40.0-77.0); PLATELET COUNT (AUTO) 379 K/uL (130-400); RED BLOOD CELL COUNT(AUTO) 5.17 MIL/uL (4.50-6.20); RED CELL DISTRIBUTION WIDTH 20.1 % (11.0-15.5); WHITE BLOOD COUNT (AUTO) 12.5 K/uL (4.8-10.8)
[2020-03-15 08:13] LABS: CREATININE 1.6 mg/dL (0.5-1.5); POTASSIUM 3.6 mmol/L (3.5-5.1)
[2020-03-15] MEDS: MULTIVITAMIN TABLET PO SCH (10:57)
[2020-03-15] MEDS: FAMOTIDINE 20MG VIAL IV SCH ×2 (10:57→21:51)
[2020-03-15] MEDS: VANCOMYCIN 1G 1.25 GM in 0.9% NACL 250ML 250 ML IV SCH ×2 (10:57→21:53)
[2020-03-15] MEDS: ASPIRIN 325MG EC TAB PO SCH (10:57)
[2020-03-15] MEDS: ENOXAPARIN SODIUM 100 MG/1 ML SQ SCH ×2 (10:58→21:52)
[2020-03-15] MEDS: 0.9%NACL 1000ML 1,000 ML IV SCH ×2 (10:58→23:50)
[2020-03-15] MEDS: ACETAMINOPHEN 325 MG TAB PO PRN ×2 (15:00→21:59)
[2020-03-16 03:44] VITALS: BP 124/70
[2020-03-16] MEDS: FUROSEMIDE 20MG VIAL IV SCH ×3 (06:27→21:00)
[2020-03-16] MEDS: ACETAMINOPHEN 325 MG TAB PO PRN ×2 (06:28→20:58)
[2020-03-16] MEDS: ZOSYN 3.375GM+NS 50ML 50 ML IV SCH ×3 (06:28→23:00)
[2020-03-16 07:40] VITALS: BP 125/75
[2020-03-16 08:41] LABS: CREATININE 1.5 mg/dL (0.5-1.5); POTASSIUM 3.4 mmol/L (3.5-5.1)
[2020-03-16] MEDS: FAMOTIDINE 20MG VIAL IV SCH ×2 (09:32→21:13)
[2020-03-16] MEDS: VANCOMYCIN 1G 1.25 GM in 0.9% NACL 250ML 250 ML IV SCH ×2 (09:32→21:13)
[2020-03-16] MEDS: MULTIVITAMIN TABLET PO SCH (09:33)
[2020-03-16] MEDS: ENOXAPARIN SODIUM 100 MG/1 ML SQ SCH ×2 (09:33→21:25)
[2020-03-16] MEDS: ASPIRIN 325MG EC TAB PO SCH (09:33)
[2020-03-16] MEDS ORDERED: IOHEXOL-350 75 ML VIAL IV ONE (11:45)
[2020-03-16 12:00] VITALS: BP 98/57
[2020-03-16] MEDS: 0.9%NACL 1000ML 1,000 ML IV SCH (13:10)
[2020-03-16 15:52] VITALS: BP 131/67
[2020-03-16 19:56] VITALS: BP 128/101
[2020-03-16] MEDS: TRAZODONE HCL 50 MG TAB PO PRN (20:58)
[2020-03-16 23:49] VITALS: BP 124/90
[2020-03-17] MEDS: 0.9%NACL 1000ML 1,000 ML IV SCH ×2 (02:30→15:50)
[2020-03-17 04:00] VITALS: BP 131/68
[2020-03-17] MEDS: FUROSEMIDE 20MG VIAL IV SCH ×3 (05:00→20:57)
[2020-03-17] MEDS: ZOSYN 3.375GM+NS 50ML 50 ML IV SCH ×3 (06:16→20:55)
[2020-03-17 08:00] VITALS: BP 131/98
[2020-03-17] MEDS: VANCOMYCIN 1G 1.25 GM in 0.9% NACL 250ML 250 ML IV SCH (09:00)
[2020-03-17 11:51] VITALS: BP 123/89
[2020-03-17] MEDS: FAMOTIDINE 20MG VIAL IV SCH ×2 (11:58→20:55)
[2020-03-17] MEDS: MULTIVITAMIN TABLET PO SCH (11:58)
[2020-03-17] MEDS: ASPIRIN 325MG EC TAB PO SCH (11:58)
[2020-03-17] MEDS: ENOXAPARIN SODIUM 100 MG/1 ML SQ SCH ×2 (11:59→20:58)
[2020-03-17] MEDS: KCL 20 MEQ ERTAB PO PRN (12:01)
[2020-03-17] MEDS ORDERED: LIDOCAINE HCL-MPF 1% 2ML VIAL IV PRN (13:45)
[2020-03-17] MEDS ORDERED: KCL 20 MEQ ERTAB PO PRN (13:45)
[2020-03-17] MEDS ORDERED: POTASSIUM CHLORIDE 20MEQ/100ML 100 ML IV PRN (13:45)
[2020-03-17] MEDS ORDERED: POTASSIUM CHLORIDE 10% ELIXIR 20 MEQ/15 ML UDCUP PO PRN (13:45)
[2020-03-17 16:00] VITALS: BP 121/97
[2020-03-17] MEDS ORDERED: PAROXETINE HCL 20 MG TABLET PO SCH (17:30)
[2020-03-17 20:00] VITALS: BP 153/92
[2020-03-17] MEDS ORDERED: PAROXETINE HCL 20 MG TABLET PO ONE (20:00)
[2020-03-17] MEDS: TRAZODONE HCL 50 MG TAB PO PRN (21:52)
[2020-03-17 23:37] VITALS: BP 112/77
[2020-03-18 04:00] VITALS: BP 120/85
[2020-03-18] MEDS: FUROSEMIDE 20MG VIAL IV SCH (05:00)
[2020-03-18] MEDS: 0.9%NACL 1000ML 1,000 ML IV SCH (05:10)
[2020-03-18 06:08] LABS: BASOPHILS % (AUTO) 0.6 % (0.0-5.0); EOSINOPHILS % (AUTO) 12.2 % (0.0-8.0); HEMATOCRIT 39.9 % (42-54); LYMPHOCYTES % (AUTO) 29.1 % (21.0-51.0); MEAN CORPUSCULAR HEMOGLOBIN 24.6 pg (27.0-33.0); MEAN CORPUSCULAR HGB CONC 30.8 g/dL (32.0-36.0); MONOCYTES % (AUTO) 8.1 % (3.0-13.0); NEUTROPHILS % (AUTO) 49.7 % (40.0-77.0); PLATELET COUNT (AUTO) 366 K/uL (130-400); RED BLOOD CELL COUNT(AUTO) 4.99 MIL/uL (4.50-6.20); RED CELL DISTRIBUTION WIDTH 20.3 % (11.0-15.5); WHITE BLOOD COUNT (AUTO) 10.7 K/uL (4.8-10.8)
[2020-03-18] MEDS: ZOSYN 3.375GM+NS 50ML 50 ML IV SCH (06:20)
[2020-03-18 06:25] LABS: CREATININE 1.4 mg/dL (0.5-1.5); POTASSIUM 3.8 mmol/L (3.5-5.1)
[2020-03-18 08:00] VITALS: BP 129/95
[2020-03-18] MEDS: ASPIRIN 325MG EC TAB PO SCH (09:00)
[2020-03-18] MEDS ORDERED: PAROXETINE HCL 20 MG TABLET PO SCH (09:00)
[2020-03-18] MEDS: MULTIVITAMIN TABLET PO SCH (09:00)
[2020-03-18] MEDS: FAMOTIDINE 20MG VIAL IV SCH (10:28)
[2020-03-18] MEDS: ENOXAPARIN SODIUM 100 MG/1 ML SQ SCH (10:45)
[2020-03-18 12:00] VITALS: BP 130/90
== END 2020-03-18 15:35 | disposition left against medical advice (07) | DRG 175 ==
LOC: EDH 21:05 → EDHIP 23:50 → 4DH 03-09 11:29
PROVIDERS: ADMIT Family Medicine; ATTEND Family Medicine
DX: I26.99 Other pulmonary embolism without acute cor pulmonale (principal); J96.91 Respiratory failure, unspecified with hypoxia; J85.1 Abscess of lung with pneumonia; I50.23 Acute on chronic systolic (congestive) heart failure; I42.9 Cardiomyopathy, unspecified; R45.851 Suicidal ideations; I11.0 Hypertensive heart disease with heart failure; E11.51 Type 2 diabetes mellitus with diabetic peripheral angiopathy without gangrene; E66.9 Obesity, unspecified; E78.00 Pure hypercholesterolemia, unspecified; E78.5 Hyperlipidemia, unspecified; E87.6 Hypokalemia; F32.9 Major depressive disorder, single episode, unspecified; F41.1 Generalized anxiety disorder; I25.10 Atherosclerotic heart disease of native coronary artery without angina pectoris; J43.0 Unilateral pulmonary emphysema [MacLeod's syndrome]; F14.129 Cocaine abuse with intoxication, unspecified; J45.909 Unspecified asthma, uncomplicated; R53.81 Other malaise; Z53.29 Procedure and treatment not carried out because of patient's decision for other reasons; Z20.822 Contact with and (suspected) exposure to COVID-19; I25.2 Old myocardial infarction; Z74.01 Bed confinement status; Z79.01 Long term (current) use of anticoagulants; Z79.02 Long term (current) use of antithrombotics/antiplatelets; Z91.14 Patient's other noncompliance with medication regimen; Z91.19 Patient's noncompliance with other medical treatment and regimen; Z68.33 Body mass index [BMI] 33.0-33.9, adult; Z88.8 Allergy status to other drugs, medicaments and biological substances
CPT/HCPCS: 36415; 36600; 71045; 71260; 71275; 80048; 80053; 80202; 80305; 81001; 82435; 82550; 82803; 82947; 82948; 83605; 83735; 83880; 84100; 84132; 84145; 84295; 84484; 85018; 85025; 85027; 85378; 85610; 85730; 86140; 86480; 87040; 87088; 87426; 87804; 87880; 93005; 93306; 93356; 93970; 94010; 99291; G0378; J0696; J1644; J1650; J1940; J2060; J2270; J2405; J2543; J3370; J3411; J3480; J3490; J7030; J7050; J7120; Q9967; U0003